=== PATIENT | male | born 1975 | race Caucasian/White ===

== ENCOUNTER 2021-05-15 13:37 | Emergency (ER) | payer OTHER, SELFPAY ==
[2021-05-15 13:50] VITALS: BP 135/75; PULSE 68; RESP 17; TEMP 36.1; O2SAT 96; BMI 28.0
--- NOTE | 2021-05-15 14:09 | ED_ITS ---
HPI - Ear Problem General Chief complaint: Ear Problems Stated complaint: Earache Time Seen by Provider: 05/15/21 14:01 Source: patient Mode of arrival: ambulatory Limitations: no limitations History of Present Illness HPI Narrative: 46-year-old male presenting to the ED with complaints of bilateral ear pain worse on the right for the past week and a half. Reports that approximately 1 month ago he was treated for a fungal infection although did not finish all the antibiotic drops. Reports that he has been putting Q-tips in his ears because he feels like something is in there he noticed some clear/purulent discharge. He reports that it hurts when he touches his ear. He denies any other symptoms complaints or concerns related to this. MD Complaint: ear pain, ear discharge and decreased hearing Location: bilateral Duration: constant Severity: moderate Relieving factors: nothing Exacerbating factors: palpation Context: other (Reports he was diagnosed approximately a month ago with a fungal infection to his ears and he had some drops although did not finish the course) Discharge from ear: yes - purulent Associated symptoms ear: decreased hearing and external ear tenderness Treatment prior to arrival: attempt at ear wax removal Related Data Previous Rx's Medication Instructions Recorded amoxicillin 875 mg-potassium 1 tab PO BID 10 Days #20 tab 05/15/21 clavulanate 125 mg tablet ciprofloxacin 0.3 %-dexamethasone 4 drp OTIC (EARS) BID 7 Days ml 05/15/21 0.1 % ear drops,suspension (Ciprodex) Allergies Allergy/AdvReac Type Severity Reaction Status Date / Time No Known Allergies Allergy Verified 05/15/21 13:53 Review of Systems Review of Systems: Constitutional : No Weight loss, No Fever, No Chills, No Night Sweats, No Fatigue, No Malaise ENT/Mouth : Positive decreased hearing with bilateral ear pain and discharge from the ear, No Hearing loss, No Nasal Congestion, No Sinus Pain, No Hoarseness, No sore throat, No Rhinorrhea, No Swallowing Difficulty Eyes: No Eye Pain, No Swelling, No Redness, No Foreign Body, No Discharge, No Vision Changes Cardiovascular : No Chest Pain, No SOB, No Dyspnea on Exertion, No Orthopnea, No Edema, No Palpitations Respiratory : No Cough, No Sputum, No Wheezing, No Smoke Exposure, No Dyspnea Gastrointestinal : No Nausea, No Vomiting, No Diarrhea, No Constipation, No abdominal Pain, No Hematochezia, No Melena Genitourinary : no irregular bleeding, No Dysuria, No Urinary Frequency, No Hematuria, No Urinary Incontinence, No Urgency, No Flank Pain, No Urinary Flow Changes, No Hesitancy Musculoskeletal : No joint pain, No Myalgias, No Joint Swelling Skin : No Skin Lesions, No rash Neuro : No Weakness, No Numbness, No Paresthesias, No Loss of Consciousness, No Dizziness, No Headache Psych : No Anxiety/Panic, No Depression, No SI/HI/AH/VH, No Social Issues, Heme/Lymph: No Bruising, No Bleeding,No Lymphadenopathy Endocrine : No Polyuria, No Polydipsia, No Temperature Intolerance Yes all other systems are reviewed and are negative [facility] Past Medical History Attestation statement: The following information was validated with the patient. Medical History HIV (human immunodeficiency virus infection) Social History Social History Advance Directives: No Advance Directives Information Provided: No Physical Exam Vital Signs: Vital Signs: Last Vital Signs Temp 97.0 F 05/15/21 13:50 Pulse 68 05/15/21 13:50 Resp 17 05/15/21 13:50 BP 135/75 05/15/21 13:50 Pulse Ox 96 05/15/21 13:50 BMI result Body Mass Index 28.0 vital signs have been reviewed as normal and appeared to be correct. Blood pressure normal. Heart rate normal. Respiration rate normal. Temperature normal. Oxygen saturation normal. Appearance: Alert. Oriented X3. No acute distress. Head: Normal external exam. Normocephalic. Atraumatic. No Vázquez signs noted. No raccoon eyes noted Eyes: PERRLA. EOMI. Conjunctiva and sclera normal. Eyelids normal. ENT: Patient with tenderness up patient on manipulation of the pinna and tragus and on bilateral external ear canal examination patient noted to have edema and purulent drainage and cerumen impaction consistent with otitis externa. Tympanic membranes mildly erythematous and bulging with loss of normal landmarks consistent with otitis media. Pharynx normal. Uvula midline. Moist mucous membranes. No trismus noted. No drooling noted. No muffled voice noted. Neck: Normal inspection. Neck supple. FROM. No adenopathy. Thyroid Normal. No meningeal signs. No neck mass noted. CVS: Normal heart rate and rhythm. Heart sound normal. Pulses normal throughout. No murmurs/rales/gallops. Respiratory: No respiratory distress. Painless inspiration. Breath sounds normal. No wheezes/rales/rhonchi noted. Chest nontender. No accessory muscle usage noted or decreased air movement noted. Back: Full range of motion noted. No rashes/lesion/induration/fluctuance or signs of infection noted. Skin: Skin warm and dry. Normal skin color. Normal skin turgor. No rash es/lesions/lacerations noted. Extremities: No calf tenderness is noted. Extremities exhibit normal range of motion. Extremities nontender. Neuro: Oriented X 3. No motor deficit. No sensory deficit. Reflexes normal. Normal steady gait. No focal neuro deficits noted. CN's II-XII intact bilaterally? Vascular: + radial pulses/+ 2 distal pedal pulses/+2 dorsalis pedis b/l. Normal cap refill. No cyanosis noted to upper extremity nails and lower extremity toes nails. Course Course Course Narrative: Patient now status post cerumen removal bilaterally. With peroxide. Patient tolerated procedure well. No complications. Tympanic membranes were intact prior and after the cerumen impaction removal. Will DC home with antibiotics and instructions follow-up with Ear Nose and Throat in to continue his antibiotics as prescribed and to return if any new or worsening symptoms. Patient understands agrees with this plan Procedures Ear Wax Removal Both Ears: Cerumenolytic Used: other (Peroxide) Results: Re-examined: some cerumen remains TM Examination: TM(s) erythematous Ear Canal Exam: atraumatic Patient Tolerated Procedure: well and no complications Complications: no problems Technique: ear canal irrigated MDM - Ear Medical Records Attestation: I reviewed the patient's medical records. Discharge Plan Discharge Clinical Impression: Otitis externa, Otitis media, Cerumen impaction Patient Disposition: Home, Self-Care Instructions: Otitis Externa (DC), Ear Infection (ED) Prescriptions: New ciprofloxacin-dexamethasone [Ciprodex] 0.3-0.1 % drops,suspension 4 drp otic (ears) BID 7 Days 0RF amoxicillin-pot clavulanate 875-125 mg tablet 1 tab PO BID 10 Days Qty: 20 0RF Referrals: Rome Vegas [Physician] - 2 days Katie Downing MD [Primary Care Provider] - 2 days Print Language: Sri Lankan
== END 2021-05-15 14:18 | disposition home or self-care (01) ==
PROVIDERS: Emergency Provider Emergency Medicine; PCP Student in an Organized Health Care Education/Training Program
DX: H60.93 Unspecified otitis externa, bilateral (principal); H66.93 Otitis media, unspecified, bilateral; H61.23 Impacted cerumen, bilateral; H92.03 Otalgia, bilateral; B20 Human immunodeficiency virus [HIV] disease
CPT/HCPCS: 69209; 99283

== ENCOUNTER 2021-05-16 16:15 | Emergency (ER) | payer OTHER, SELFPAY ==
[2021-05-16 16:17] VITALS: BP 142/74; PULSE 90; RESP 18; TEMP 36.7; O2SAT 99; BMI 29.0
--- NOTE | 2021-05-16 17:13 | ED.EAR ---
HPI - Ear Problem General Chief complaint: Ear Problems Stated complaint: continued earache, medication isnt helping Time Seen by Provider: 05/16/21 16:19 Source: patient Mode of arrival: ambulatory Limitations: no limitations History of Present Illness HPI Narrative: 46-year-old male presenting to the ED with complaints of persisting right-sided ear pain he reports that the antibiotics and the Motrin Tylenol are not helping his pain he came here for something stronger for his pain. He denies any other injuries complaints concerns at this time. He was seen here yesterday for otitis media/externa was given PO abx's and drops. He reports he is taking as prescribed. MD Complaint: ear pain and ear discharge Location: right ear Duration: constant Severity: moderate Relieving factors: nothing Exacerbating factors: nothing Discharge from ear: yes - purulent Treatment prior to arrival: other (See above) Related Data Previous Rx's Medication Instructions Recorded amoxicillin 875 mg-potassium 1 tab PO BID 10 Days #20 tab 05/15/21 clavulanate 125 mg tablet ciprofloxacin 0.3 %-dexamethasone 4 drp OTIC (EARS) BID 7 Days ml 05/15/21 0.1 % ear drops,suspension (Ciprodex) ofloxacin 0.3 % ear drops 10 drp OTIC (EARS) DAILY 7 Days 05/16/21 #10 ml tramadol 50 mg tablet 50 mg PO Q8H PRN #14 tab 05/16/21 Allergies Allergy/AdvReac Type Severity Reaction Status Date / Time No Known Allergies Allergy Verified 05/15/21 13:53 Review of Systems Review of Systems: Constitutional : No Weight loss, No Fever, No Chills, No Night Sweats, No Fatigue, No Malaise ENT/Mouth : + ear pain/discharge, No Hearing loss, No Nasal Congestion, No Sinus Pain, No Hoarseness, No sore throat, No Rhinorrhea, No Swallowing Difficulty Eyes: No Eye Pain, No Swelling, No Redness, No Foreign Body, No Discharge, No Vision Changes Cardiovascular : No Chest Pain, No SOB, No Dyspnea on Exertion, No Orthopnea, No Edema, No Palpitations Respiratory : No Cough, No Sputum, No Wheezing, No Smoke Exposure, No Dyspnea Gastrointestinal : No Nausea, No Vomiting, No Diarrhea, No Constipation, No abdominal Pain, No Hematochezia, No Melena Genitourinary : no irregular bleeding, No Dysuria, No Urinary Frequency, No Hematuria, No Urinary Incontinence, No Urgency, No Flank Pain, No Urinary Flow Changes, No Hesitancy Musculoskeletal : No joint pain, No Myalgias, No Joint Swelling Skin : No Skin Lesions, No rash Neuro : No Weakness, No Numbness, No Paresthesias, No Loss of Consciousness, No Dizziness, No Headache Psych : No Anxiety/Panic, No Depression, No SI/HI/AH/VH, No Social Issues, Heme/Lymph: No Bruising, No Bleeding,No Lymphadenopathy Endocrine : No Polyuria, No Polydipsia, No Temperature Intolerance Yes all other systems are reviewed and are negative [facility] Past Medical History Attestation statement: The following information was validated with the patient. Medical History HIV (human immunodeficiency virus infection) Social History Social History Advance Directives: No Advance Directives Information Provided: No Physical Exam Vital Signs: Vital Signs: Last Vital Signs Temp 98.0 F 05/16/21 16:17 Pulse 90 05/16/21 16:17 Resp 18 05/16/21 16:17 BP 142/74 H 05/16/21 16:17 Pulse Ox 99 05/16/21 16:17 BMI result Body Mass Index 29.0 ?vital signs have been reviewed as normal and appeared to be correct.? Blood pressure normal.? Heart rate normal.? Respiration rate normal.? Temperature normal.? Oxygen saturation normal.? Appearance: Alert. Oriented X3. No acute distress. ? Head: Normal external exam. Normocephalic. Atraumatic.? No Vázquez signs noted. No raccoon eyes noted Eyes: PERRLA. EOMI. Conjunctiva and sclera normal. Eyelids normal.? ENT:? Patient with tenderness up patient on manipulation of the pinna and tragus and on bilateral external ear canal examination patient noted to have edema and purulent drainage and cerumen impaction consistent with otitis externa.? left Tympanic membranes mildly erythematous and bulging with loss of normal landmarks consistent with otitis media. tympanic membrane was visualized yesterday although today I am on sure if the tympanic membrane might be ruptured. Pharynx normal. Uvula midline. Moist mucous membranes. ? No trismus noted.? No drooling noted.? No muffled voice noted. Neck: Normal inspection. Neck supple. FROM. No adenopathy. Thyroid Normal. No meningeal signs. No neck mass noted. CVS: Normal heart rate and rhythm. Heart sound normal. Pulses normal throughout.? No murmurs/rales/gallops. Respiratory: No respiratory distress. Painless inspiration. Breath sounds normal. No wheezes/rales/rhonchi noted. Chest nontender. ? No accessory muscle usage noted or decreased air movement noted. Back:? Full range of motion noted.? No rashes/lesion/induration/fluctuance or signs of infection noted. Skin: Skin warm and dry.? Normal skin color.? Normal skin turgor. No rashes/lesions/lacerations noted. Extremities: No calf tenderness is noted.? Extremities exhibit normal range of motion.? Extremities nontender. Neuro: Oriented X 3.? No motor deficit.? No sensory deficit.? Reflexes normal.? Normal steady gait.? No focal neuro deficits noted. CN's II-XII intact bilaterally? Vascular: + radial pulses/+ 2 distal pedal pulses/+2 dorsalis pedis b/l.? Normal cap refill.? No cyanosis noted to upper extremity nails and lower extremity toes nails. Course Course Course Narrative: Patient persisting for persistent pain to years although worse on the right. On my exam yesterday I was able to see bilateral tympanic membranes although today and unable to visualize the right tympanic membrane therefore I am questioning a possible right tympanic membrane rupture. Therefore at this time I will DC home with antibiotics and I will change the drops to ofloxacin along with instructions follow-up with PCP and Ear Nose and Throat and to return if any new or worsening symptoms. Patient understands agrees with this plan. [facility] - Ear Medical Records Attestation: I reviewed the patient's medical records. Discharge Plan Discharge Clinical Impression: Otitis externa, Otitis media, Perforated eardrum Patient Disposition: Home, Self-Care Instructions: Otitis Externa (DC), Ruptured Eardrum (ED), Ear Infection (ED) Prescriptions: New ofloxacin 0.3 % drops 10 drp otic (ears) DAILY 7 Days Qty: 10 0RF tramadol 50 mg tablet 50 mg PO Q8H PRN (Reason: pain) Qty: 14 0RF Rx Instructions: May partially fill upon patient request No Action ciprofloxacin-dexamethasone [Ciprodex] 0.3-0.1 % drops,suspension 4 drp otic (ears) BID 7 Days 0RF amoxicillin-pot clavulanate 875-125 mg tablet 1 tab PO BID 10 Days Qty: 20 0RF Referrals: [facility] [Primary Care Provider] - 2 days Rome Vegas [Physician] - 2 days Interventions: ED Discharge Assessment Last Done: 05/16/21 17:23 Discharge Date/Time: 05/16/21 17:24 Print Language: Kazakh
== END 2021-05-16 17:24 | disposition home or self-care (01) ==
PROVIDERS: Emergency Provider Internal Medicine
DX: H60.93 Unspecified otitis externa, bilateral (principal); H66.93 Otitis media, unspecified, bilateral; H72.93 Unspecified perforation of tympanic membrane, bilateral; Z79.899 Other long term (current) drug therapy
CPT/HCPCS: 99282

== ENCOUNTER 2021-07-09 13:50 | Emergency (ER) | payer OTHER, SELFPAY ==
[2021-07-09 14:43] VITALS: BP 109/94; PULSE 88; RESP 16; TEMP 36.6; O2SAT 98; BMI 29.5
--- NOTE | 2021-07-09 16:02 | ED.NECK ---
HPI - Neck Pain/Injury General Chief Complaint: Neck Pain/Injury Stated Complaint: stifness , neck pain and back Time Seen by Provider: 07/09/21 15:51 Source: patient Mode of arrival: ambulatory History of Present Illness HPI Narrative: 46-year-old male with a past medical history of HIV presenting to the ED complaining of acute on chronic right-sided neck pain/stiffness radiating down RUE x years. Admits symptoms began after injury many years ago, now with intermittent flares. Denies new/recent fall/injury or trauma. Reports intermittent numbness to RUE. Denies weakness, fever, back pain, urinary incontinence/retention, sore throat/swelling, ear pain MD complaint: neck pain Onset (ago): year(s) Related Data Previous Rx's Medication Instructions Recorded amoxicillin 875 mg-potassium 1 tab PO BID 10 Days #20 tab 05/15/21 clavulanate 125 mg tablet ciprofloxacin 0.3 %-dexamethasone 4 drp OTIC (EARS) BID 7 Days ml 05/15/21 0.1 % ear drops,suspension (Ciprodex) ofloxacin 0.3 % ear drops 10 drp OTIC (EARS) DAILY 7 Days 05/16/21 #10 ml tramadol 50 mg tablet 50 mg PO Q8H PRN #14 tab 05/16/21 acetaminophen 500 mg tablet 500 mg PO Q6H PRN #14 tab 07/09/21 (Tylenol Extra Strength) cyclobenzaprine 5 mg tablet 5 mg PO Q8H PRN 5 Days #14 tab 07/09/21 lidocaine 5 % topical patch 1 patch TOPICAL DAILY PRN #30 ea 07/09/21 (Lidoderm) MDD remove after 12 hours Allergies Allergy/AdvReac Type Severity Reaction Status Date / Time No Known Allergies Allergy Verified 05/15/21 13:53 Review of Systems Review of Systems: Constitutional: No Fever, No Chills, No Fatigue, No Malaise ENT/Mouth: No Hearing loss, No Ear Pain, No Nasal Congestion, No sore throat, No Rhinorrhea, No Swallowing Difficulty Eyes: No Eye Pain, No Swelling, No Redness Cardiovascular: No Chest Pain, No SOB, No Edema, No Palpitations Respiratory: No Cough, No Sputum, No Dyspnea Gastrointestinal: No Nausea, No Vomiting, No Diarrhea, No Constipation, No Abdominal pain Genitourinary: No irregular bleeding, No Dysuria, No Urinary Frequency, No Hematuria, No Urinary Incontinence/retention Musculoskeletal: + joint pain, No Myalgias, No Joint Swelling Skin: No Skin Lesions, No rash Neuro: No Weakness, + Numbness, + Paresthesias, No Loss of Consciousness, No Dizziness, No Headache Yes all other systems are reviewed and are negative [facility] Past Medical History Attestation statement: The following information was validated with the patient. Medical History HIV (human immunodeficiency virus infection) Social History Social History Advance Directives: No Advance Directives Information Provided: No Physical Exam Vital Signs: Vital Signs: Last Vital Signs Temp 97.9 F 07/09/21 14:43 Pulse 88 07/09/21 14:43 Resp 16 07/09/21 14:43 BP 109/94 H 07/09/21 14:43 Pulse Ox 98 07/09/21 14:43 BMI result Body Mass Index 29.5 Const: General: cooperative, healthy appearing and no acute distress Orientation/consciousness: patient oriented x3 Limitations: no limitations HEENT: Head: Yes normal to inspection Ears: hearing grossly normal bilaterally General nose exam: Normal external nose present Face and sinus: Yes normal facial exam Eyes: General: appearance normal, both eyes and all related structures EOM: EOMs intact bilaterally Neck: Neck: Yes normal visual inspection Resp: Effort & Inspection: normal respiratory effort Auscultation: clear to auscultation bilaterally Cardio: Rate: regular rate Heart sounds: S1 normal heart sound present and S2 normal heart sound present GI: Inspection: Yes normal to inspection Palpation (GI): Soft to palpation, nontender, no guarding and not rigid : General: Yes no CVA tenderness Back/Spine/Pelvis: Back: no CVA tenderness Skin: Rashes: no rashes Wounds: no wounds Neuro: General: patient oriented x3 Gait exam (Neuro): Normal gait present Extrem: General: Yes normal to inspection Discharge Plan Discharge Clinical Impression: Cervical radiculopathy, Strain of neck muscle Patient Disposition: Home, Self-Care Instructions: Cervical Radiculopathy (ED) Additional Instructions: Your pain is likely musculoskeletal/you may have a pinched nerve Flexeril is a muscle relaxer, take at night as it makes you drowsy, do not drive, drink alcohol, or operate machinery while taking it Lidoderm patches are numbing patches, apply to painful area In addition take Tylenol at home If symptoms persist or worsen, pain becomes unbearable, you developed urinary retention or incontinence, or weakness return to the ED [facility]? Sports medicine clinic- [place], [place] ? Prescriptions: New acetaminophen [Tylenol Extra Strength] 500 mg tablet 500 mg PO Q6H PRN (Reason: pain or fever) Qty: 14 0RF lidocaine [Lidoderm] 5 % adhesive patch,medicated 1 patch topical DAILY MDD remove after 12 hours PRN (Reason: pain) Qty: 30 0RF Rx Instructions: leave on most painful area for up to 12 hrs cyclobenzaprine 5 mg tablet 5 mg PO Q8H PRN (Reason: pain (scale score 7-10)) 5 Days Qty: 14 0RF No Action ciprofloxacin-dexamethasone [Ciprodex] 0.3-0.1 % drops,suspension 4 drp otic (ears) BID 7 Days 0RF amoxicillin-pot clavulanate 875-125 mg tablet 1 tab PO BID 10 Days Qty: 20 0RF ofloxacin 0.3 % drops 10 drp otic (ears) DAILY 7 Days Qty: 10 0RF tramadol 50 mg tablet 50 mg PO Q8H PRN (Reason: pain) Qty: 14 0RF Rx Instructions: May partially fill upon patient request Referrals: Sara Malagon MD [Physician] - 1 week Physician,Unknown J [Primary Care Provider] -
[2021-07-09] MEDS: Lidocaine 4 % Patch ADH..PATCH 1 PATCH TRANSDERMA (16:25)
== END 2021-07-09 16:33 | disposition home or self-care (01) ==
PROVIDERS: Emergency Provider Emergency Medicine
DX: M54.12 Radiculopathy, cervical region (principal); M54.2 Cervicalgia; Z79.899 Other long term (current) drug therapy
CPT/HCPCS: 99283

== ENCOUNTER 2021-07-17 01:39 | Emergency (ER) | payer OTHER, SELFPAY ==
[2021-07-17 01:43] VITALS: BP 140/90; PULSE 92; O2SAT 98
[2021-07-17 01:45] VITALS: BP 137/80; PULSE 83; RESP 18; TEMP 36.9; O2SAT 95; BMI 29.5
[2021-07-17 02:21] VITALS: BP 126/85; PULSE 76; RESP 16; O2SAT 98
--- NOTE | 2021-07-17 02:36 | ED_ITS ---
HPI - General Adult General Chief complaint: General Medical Stated complaint: RIGHT ARM PAIN Time Seen by Provider: 07/17/21 02:30 Source: patient Mode of arrival: ambulatory Limitations: no limitations History of Present Illness HPI narrative: Patient comes to the emergency room complaining of right-sided numbness and tingling in the upper extremity, radiating from the neck. Patient states that at the age of 26, patient had an accident and since then he has had radiculopathy. Patient has an appointment coming up in a few days with a specialist , but does not know which specialty, likely orthopedics or spine surgery. Patient states that he is taking gabapentin but it is not working. Patient has been very uncomfortable tonight due to the pain. Patient denies neck stiffness, no fever or chills. Related Data Previous Rx's Medication Instructions Recorded amoxicillin 875 mg-potassium 1 tab PO BID 10 Days #20 tab 05/15/21 clavulanate 125 mg tablet ciprofloxacin 0.3 %-dexamethasone 4 drp OTIC (EARS) BID 7 Days ml 05/15/21 0.1 % ear drops,suspension (Ciprodex) ofloxacin 0.3 % ear drops 10 drp OTIC (EARS) DAILY 7 Days 05/16/21 #10 ml tramadol 50 mg tablet 50 mg PO Q8H PRN #14 tab 05/16/21 acetaminophen 500 mg tablet 500 mg PO Q6H PRN #14 tab 07/09/21 (Tylenol Extra Strength) cyclobenzaprine 5 mg tablet 5 mg PO Q8H PRN 5 Days #14 tab 07/09/21 lidocaine 5 % topical patch 1 patch TOPICAL DAILY PRN #30 ea 07/09/21 (Lidoderm) MDD remove after 12 hours tramadol 50 mg tablet 50 mg PO BID PRN #7 tab 07/17/21 Allergies Allergy/AdvReac Type Severity Reaction Status Date / Time No Known Allergies Allergy Verified 05/15/21 13:53 Review of Systems Review of Systems: Constitutional : No Weight loss, No Fever, No Chills, No Night Sweats, No Fatigue, No Malaise ENT/Mouth : No Hearing loss, No Ear Pain, No Nasal Congestion, No Sinus Pain, No Hoarseness, No sore throat, No Rhinorrhea, No Swallowing Difficulty Eyes: No Eye Pain, No Swelling, No Redness, No Foreign Body, No Discharge, No Vision Changes Cardiovascular : No Chest Pain, No SOB, No Dyspnea on Exertion, No Orthopnea, No Edema, No Palpitations Respiratory : No Cough, No Sputum, No Wheezing, No Smoke Exposure, No Dyspnea Gastrointestinal : No Nausea, No Vomiting, No Diarrhea, No Constipation, No abdominal Pain, No Hematochezia, No Melena Genitourinary : no irregular bleeding, No Dysuria, No Urinary Frequency, No H ematuria, No Urinary Incontinence, No Urgency, No Flank Pain, No Urinary Flow Changes, No Hesitancy Musculoskeletal : Complaining of chronic neck pain radiating from the neck to the tips of the fingers and the right hand. Chronic. Skin : No Skin Lesions, No rash Neuro : No Weakness, No Numbness, No Paresthesias, No Loss of Consciousness, No Dizziness, No Headache Psych : No Anxiety/Panic, No Depression, No SI/HI/AH/VH, No Social Issues, Heme/Lymph: No Bruising, No Bleeding,No Lymphadenopathy Endocrine : No Polyuria, No Polydipsia, No Temperature Intolerance [facility] Past Medical History Medical History (Updated 07/17/21 @ 02:39 by Nae Escalante MD) Cervical radiculopathy HIV (human immunodeficiency virus infection) Social History Social History Advance Directives: No Physical Exam ED Vital Signs: Vital Signs - 24 hr 07/17/21 01:45 07/17/21 02:21 Temperature 98.5 F Pulse Rate 83 76 Respiratory Rate 18 16 Blood Pressure 137/80 126/85 Pulse Oximetry 95 98 BMI result Body Mass Index 29.5 Const Other: Appearance: Alert. Oriented X3. No acute distress. Eyes: Pupils equal, round and reactive to light. ENT: Pharynx normal. Neck: Normal inspection. Neck supple. No lymph nodes noted. No crepitus patient is able to flex and extend the neck, no pain to palpation CVS: Normal heart rate and rhythm. Pulses normal. Normal S1 and S2 Respiratory: No respiratory distress. Breath sounds normal. No Wheezing. No rales Abdomen: Soft and nontender. No rigidity. No distention. Skin: Skin warm and dry. Normal skin color. Normal skin turgor. Extremities: No lower extremity edema. No Lacerations. No Rash. Patient is able to abduct and adduct both arms Neuro: Oriented X 3. No motor deficit. No sensory deficit. Moving all extremities. No slurred speech. CN 2 through 12 grossly intact Psych: calm, cooperative, normal affect Course Course Course Narrative: Patient has had issues with cervical radiculopathy for over 20 years. Patient will be seeing a specialist soon. Patient was given 1 dose of dexamethasone and p.o. tramadol. Patient cannot receive any NSAIDs due to chronic kidney injury, patient has an appointment pending with Nephrology. Discharge Plan Discharge Clinical Impression: Cervical radiculopathy Patient Disposition: Home, Self-Care Instructions: Cervical Radiculopathy (ED) Additional Instructions: Please follow-up with your primary care physician tomorrow. If you have any worsening or new symptoms, please return to the emergency room or call 911 Prescriptions: New tramadol 50 mg tablet 50 mg PO BID PRN (Reason: pain) Qty: 7 0RF No Action ciprofloxacin-dexamethasone [Ciprodex] 0.3-0.1 % drops,suspension 4 drp otic (ears) BID 7 Days 0RF amoxicillin-pot clavulanate 875-125 mg tablet 1 tab PO BID 10 Days Qty: 20 0RF ofloxacin 0.3 % drops 10 drp otic (ears) DAILY 7 Days Qty: 10 0RF tramadol 50 mg tablet 50 mg PO Q8H PRN (Reason: pain) Qty: 14 0RF Rx Instructions: May partially fill upon patient request acetaminophen [Tylenol Extra Strength] 500 mg tablet 500 mg PO Q6H PRN (Reason: pain or fever) Qty: 14 0RF lidocaine [Lidoderm] 5 % adhesive patch,medicated 1 patch topical DAILY MDD remove after 12 hours PRN (Reason: pain) Qty: 30 0RF Rx Instructions: leave on most painful area for up to 12 hrs cyclobenzaprine 5 mg tablet 5 mg PO Q8H PRN (Reason: pain (scale score 7-10)) 5 Days Qty: 14 0RF
[2021-07-17] MEDS: traMADoL HCL 50 MG TABLET PO (02:57)
[2021-07-17] MEDS: dexAMETHasone sod phosphate 4 MG/ML VIAL 6 MG IM (02:57)
== END 2021-07-17 03:03 | disposition home or self-care (01) ==
PROVIDERS: Emergency Provider Emergency Medicine
DX: M54.12 Radiculopathy, cervical region (principal); M79.602 Pain in left arm; M54.2 Cervicalgia; Z79.899 Other long term (current) drug therapy
CPT/HCPCS: 96372; 99283; 99284; J1100

== ENCOUNTER 2021-07-22 20:58 | Emergency (ER) | payer OTHER, SELFPAY ==
--- NOTE | ~2021-07-22 | CT_ITS ---
EXAMINATION: CT ABDOMEN AND PELVIS WITHOUT CONTRAST CLINICAL INFORMATION: Leukocytosis and vomiting. COMPARISON: Renal ultrasound 09/10/2019. TECHNIQUE: Multidetector volumetric imaging was performed from the superior aspect of the liver through the pubic symphysis. Sagittal and coronal reformatted images were obtained on the technologist's workstation. This CT examination was performed using dose optimization techniques as appropriate, variously including the following: *Automated exposure control *Adjustment of mA and/or kV according to patient size (this includes techniques or standardized protocols for targeted exams where dose is matched to indication/reason for exam; i.e. extremities or head) *Use of iterative reconstruction technique DLP: 584 mGy-cm FINDINGS: LUNG BASES: Minimal bibasilar subpleural reticular opacities are present and may represent minimal parenchymal scarring and/or inferior dependent atelectasis. LIVER, GALLBLADDER, AND BILIARY TREE: The liver is normal in size, shape, and attenuation. No focal hepatic lesion or biliary ductal dilatation is present. The gallbladder is unremarkable with no evidence of radiopaque gallstones, gallbladder wall thickening, or obvious pericholecystic inflammatory changes. PANCREAS: Unremarkable. SPLEEN: Unremarkable. ADRENAL GLANDS: Unremarkable. KIDNEYS AND URETERS: No hydronephrosis or perinephric inflammatory changes. No nephrolithiasis. Normal appearance of the ureters. BLADDER: Decompressed. GASTROINTESTINAL TRACT: Normal appendix. No intestinal dilatation or mural thickening. Normal terminal ileum. No free intraperitoneal fluid or gas collections. Normal appearance of the sigmoid mesentery and small bowel mesentery. Normal appearance of the stomach. ABDOMINAL WALL: No significant hernia is appreciated. LYMPH NODES: Normal. VASCULAR: Minimal punctate calcific atherosclerotic plaque within the right common iliac artery. PELVIC VISCERA: Normal appearance of the prostate and seminal vesicles. OSSEOUS STRUCTURES: No suspicious skeletal abnormalities identified. CT/CT abdomen pelvis wo con IMPRESSION: Unenhanced CT of the abdomen and pelvis: *No acute abnormalities identified. Normal appendix. No urolithiasis. No hydronephrosis. No diverticulosis. No free intraperitoneal fluid or gas collections.
[2021-07-22 21:11] VITALS: BP 128/82; PULSE 80; O2SAT 99
[2021-07-22 22:09] VITALS: BP 113/47; PULSE 76; RESP 16; TEMP 36.5; O2SAT 97; BMI 29.5
[2021-07-22] MEDS: Ondansetron ODT 4 MG TAB.RAPDIS TRANSLINGU (22:17)
[2021-07-22 22:36] LABS: MANUAL DIFF FLAG NO
[2021-07-22 22:45] LABS: Basophils Percent Auto 0.2 % (0-2); Eosinophils Absolute Auto 0.3 X10*3/uL (0.0-0.4); Eosinophils Percent Auto 1.8 % (0-4); Hematocrit 47.4 % (42.0-52.0); Hemoglobin 15.7 g/dl (14.0-18.0); Imm Gran Abs Auto 0.09 X10*3/uL (0.00-0.03); Imm Gran Pct Auto 0.5 % (0.0-0.4); Mean Corpuscular HGB Conc 33.1 g/dl (31.0-36.0); Mean Corpuscular Hemoglobin 28.5 pg (27.0-33.0); Mean Platelet Volume 9.7 fL (9.4-12.4); Monocytes Absolute Auto 0.9 X10*3/uL (0.1-1.2); Neutrophils Absolute Auto 12.6 x10*3/uL (2.0-8.3); Neutrophils Percent Auto 74.5 % (45-73); Platelet Count 214 X10*3/uL (160-400); Red Blood Count 5.51 X10*6/uL (4.60-5.80); Red Cell Distribution Width 14.1 % (11.0-16.0); White Blood Count 16.9 X10*3/uL (4.8-10.8)
[2021-07-22 22:54] LABS: Alanine Aminotransferase 59 U/L (0-40); Albumin Level 4.4 g/dL (3.5-5.0); Alkaline Phosphatase 90 U/L (39-117); Anion Gap 12 (12-20); Aspartate Amino Transferase 26 U/L (5-37); Bilirubin Direct < 0.2 mg/dL (0.0-0.5); Bilirubin Total 0.2 mg/dL (0.0-1.0); Blood Urea Nitrogen 30 mg/dL (9-16); Calcium 9.4 mg/dL (8.4-10.2); Carbon Dioxide 32 mmol/L (22-29); Chloride 98 mmol/L (96-108); Creatinine Clr Calc Pharmacy 66.5; Estimated Glomerular Filt Rate 48; Glucose Random 148 mg/dL (60-115); Lipase 36 U/L (8-78); Potassium 4.4 mmol/L (3.3-5.1); Sodium 138 mmol/L (135-145); Total Protein 7.9 g/dL (6.5-8.0)
[2021-07-22 23:07] LABS: COVID-19 Test Negative (Negative); IDNOW Serial# 16C4AD1C; Influenza A Negative (Negative); Influenza B2 Negative (Negative)
[2021-07-22 23:45] VITALS: BP 123/80; PULSE 70; RESP 16; TEMP 36.9; O2SAT 96
[2021-07-23 00:18] LABS: Appearance Urine CLEAR; Color Urine YELLOW; Glucose Urine UA NEG (NEG); Leukocyte Esterase Urine NEG (NEG); Nitrite Urine NEG (NEG); Urine Blood NEG (NEG); Urine Ketones NEG (NEG); Urine Protein NEG (NEG-TRACE)
--- NOTE | 2021-07-23 00:29 | ED.NAVMDI ---
HPI - Nausea/Vomiting/Diarrhea General Chief complaint: Abdominal Pain Stated complaint: nausea vomiting Time Seen by Provider: 07/23/21 00:28 Source: patient Mode of arrival: EMS Limitations: no limitations History of Present Illness HPI Narrative: Preop history of HIV undetectable CD4 count, CKD been having nausea vomiting for last few hours vomited about 5 times has some just abdominal discomfort but no focal pain no diarrhea no fever no chills no fever no chills no running nose no cough or shortness of breath Related Data Previous Rx's Medication Instructions Recorded amoxicillin 875 mg-potassium 1 tab PO BID 10 Days #20 tab 05/15/21 clavulanate 125 mg tablet ciprofloxacin 0.3 %-dexamethasone 4 drp OTIC (EARS) BID 7 Days ml 05/15/21 0.1 % ear drops,suspension (Ciprodex) ofloxacin 0.3 % ear drops 10 drp OTIC (EARS) DAILY 7 Days 05/16/21 #10 ml tramadol 50 mg tablet 50 mg PO Q8H PRN #14 tab 05/16/21 acetaminophen 500 mg tablet 500 mg PO Q6H PRN #14 tab 07/09/21 (Tylenol Extra Strength) cyclobenzaprine 5 mg tablet 5 mg PO Q8H PRN 5 Days #14 tab 07/09/21 lidocaine 5 % topical patch 1 patch TOPICAL DAILY PRN #30 ea 07/09/21 (Lidoderm) MDD remove after 12 hours tramadol 50 mg tablet 50 mg PO BID PRN #7 tab 07/17/21 ondansetron 4 mg disintegrating 4 mg PO Q6-8H PRN #7 tab 07/23/21 tablet Allergies Allergy/AdvReac Type Severity Reaction Status Date / Time No Known Allergies Allergy Verified 05/15/21 13:53 Review of Systems Review of Systems: Yes all other systems are reviewed and are negative PMFSH Past Medical History Medical History Cervical radiculopathy HIV (human immunodeficiency virus infection) Social History Social History Advance Directives: No Advance Directives Information Provided: Yes Physical Exam Vital Signs: Vital Signs: Last Vital Signs Temp 98.4 F 07/22/21 23:45 Pulse 70 07/22/21 23:45 Resp 16 07/22/21 23:45 BP 123/80 07/22/21 23:45 Pulse Ox 96 07/22/21 23:45 BMI result Body Mass Index 29.5 Appearance: Alert. Oriented X3. No acute distress. Eyes: No pallor or icterus ENT: Pharynx normal. Oral Mucosa moist Neck: Normal inspection. Neck supple. CVS: Normal heart rate and rhythm. Pulses normal. Respiratory: No respiratory distress. Equal air entry bilateral, no wheezing/rales/rhonchi Abdomen: Soft and nontender. Bowel sounds are present, no mass palpable, no CVA tenderness Skin: Skin warm and dry. Normal skin color. Normal skin turgor. Extremities: No lower extremity edema. No calf tenderness Neuro: Oriented X 3. MDM - Nausea/Vomiting/Diarrhea MDM Narrative Medical decision making narrative: Patient labs reviewed showed significant leukocytosis with left shift also has elevated creatinine from baseline no urine ketones patient has no focal tenderness in the abdomen but because of HIV and elevated leukocytosis will do CT scan of the abdomen to rule out any occult pathology CT scan of the abdomen negative for any acute pathology will discharge patient home Lab Data Attestation: I reviewed the patient's lab results. Result diagrams: 07/22/21 22:30 07/22/21 22:30 Labs: Lab Results 07/22/21 07/22/21 07/22/21 Range/Units 22:30 22:30 22:30 WBC 16.9 H (4.8-10.8) X10*3/uL RBC 5.51 (4.60-5.80) X10*6/uL Hgb 15.7 (14.0-18.0) g/dl Hct 47.4 (42.0-52.0) % MCV 86.0 (80.0-98.0) fL MCH 28.5 (27.0-33.0) pg MCHC 33.1 (31.0-36.0) g/dl RDW 14.1 (11.0-16.0) % Plt Count 214 (160-400) X10*3/uL MPV 9.7 (9.4-12.4) fL Immature Gran % (Auto) 0.5 H (0.0-0.4) % Neut % (Auto) 74.5 H (45-73) % Lymph % (Auto) 18.0 L (20-40) % [place] % (Auto) 5.0 (2-11) % Eos % (Auto) 1.8 (0-4) % Baso % (Auto) 0.2 (0-2) % Lymph # (Auto) 3.0 (1.2-4.9) X10*3/uL [place] # (Auto) 0.9 (0.1-1.2) X10*3/uL Eos # (Auto) 0.3 (0.0-0.4) X10*3/uL Baso # (Auto) 0.0 (0.0-0.2) X10*3/uL Abs Immat Gran (auto) 0.09 H (0.00-0.03) X10*3/uL Absolute Neuts (auto) 12.6 H (2.0-8.3) x10*3/uL Absolute Nucleated RBC 0.000 (0.0-0.012) X10*3/uL Nucleated RBC % (auto) 0.0 (0.0-0.2) /100WBC Sodium 138 (135-145) mmol/L Potassium 4.4 (3.3-5.1) mmol/L Chloride 98 (96-108) mmol/L Carbon Dioxide 32 H (22-29) mmol/L Anion Gap 12 (12-20) BUN 30 H (9-16) mg/dL Creatinine 1.56 H (0.5-1.4) mg/dL Estim Creat Clear Calc 66.5 Estimated GFR 48 Random Glucose 148 H (60-115) mg/dL Calcium 9.4 (8.4-10.2) mg/dL Total Bilirubin 0.2 (0.0-1.0) mg/dL Direct Bilirubin < 0.2 (0.0-0.5) mg/dL AST 26 (5-37) U/L ALT 59 H (0-40) U/L Alkaline Phosphatase 90 (39-117) U/L Total Protein 7.9 (6.5-8.0) g/dL Albumin 4.4 (3.5-5.0) g/dL Lipase 36 (8-78) U/L Urine Color Urine Appearance Urine pH (5.0-8.0) Ur Specific [place] (1.005-1.025) Urine Protein (NEG-TRACE) MG/DL Urine Glucose (UA) (NEG) MG/DL Urine Ketones (NEG) MG/DL Urine Blood (NEG) Urine Nitrite (NEG) Ur Leukocyte Esterase (NEG) COVID-19 ([facility]) (Negative) COVID-19 Clin Com Influenza Type A (RETA) Negative (Negative) Influenza Type B (RETA) Negative (Negative) Influenza A & B Note See Note 07/22/21 07/23/21 Range/Units 22:30 00:13 WBC (4.8-10.8) X10*3/uL RBC (4.60-5.80) X10*6/uL Hgb (14.0-18.0) g/dl Hct (42.0-52.0) % MCV (80.0-98.0) fL MCH (27.0-33.0) pg MCHC (31.0-36.0) g/dl RDW (11.0-16.0) % Plt Count (160-400) X10*3/uL MPV (9.4-12.4) fL Immature Gran % (Auto) (0.0-0.4) % Neut % (Auto) (45-73) % Lymph % (Auto) (20-40) % [place] % (Auto) (2-11) % Eos % (Auto) (0-4) % Baso % (Auto) (0-2) % Lymph # (Auto) (1.2-4.9) X10*3/uL [place] # (Auto) (0.1-1.2) X10*3/uL Eos # (Auto) (0.0-0.4) X10*3/uL Baso # (Auto) (0.0-0.2) X10*3/uL Abs Immat Gran (auto) (0.00-0.03) X10*3/uL Absolute Neuts (auto) (2.0-8.3) x10*3/uL Absolute Nucleated RBC (0.0-0.012) X10*3/uL Nucleated RBC % (auto) (0.0-0.2) /100WBC Sodium (135-145) mmol/L Potassium (3.3-5.1) mmol/L Chloride (96-108) mmol/L Carbon Dioxide (22-29) mmol/L Anion Gap (12-20) BUN (9-16) mg/dL Creatinine (0.5-1.4) mg/dL Estim Creat Clear Calc Estimated GFR Random Glucose (60-115) mg/dL Calcium (8.4-10.2) mg/dL Total Bilirubin (0.0-1.0) mg/dL Direct Bilirubin (0.0-0.5) mg/dL AST (5-37) U/L ALT (0-40) U/L Alkaline Phosphatase (39-117) U/L Total Protein (6.5-8.0) g/dL Albumin (3.5-5.0) g/dL Lipase (8-78) U/L Urine Color YELLOW Urine Appearance CLEAR Urine pH 7.0 (5.0-8.0) Ur Specific [place] 1.020 (1.005-1.025) Urine Protein NEG (NEG-TRACE) MG/DL Urine Glucose (UA) NEG (NEG) MG/DL Urine Ketones NEG (NEG) MG/DL Urine Blood NEG (NEG) Urine Nitrite NEG (NEG) Ur Leukocyte Esterase NEG (NEG) COVID-19 ([facility]) Negative (Negative) COVID-19 Clin Com See Note Influenza Type A (RETA) (Negative) Influenza Type B (RETA) (Negative) Influenza A & B Note Discharge Plan Discharge Clinical Impression: Acute nausea with nonbilious vomiting Patient Disposition: Home, Self-Care Instructions: Acute Nausea and Vomiting (ED) Additional Instructions: Drink plenty of fluids Medicine for the nausea/vomiting as prescribed Report to the ER/procedure is not better Prescriptions: New ondansetron 4 mg tablet,disintegrating 4 mg PO Q6-8H PRN (Reason: nausea and vomiting) Qty: 7 0RF No Action ciprofloxacin-dexamethasone [Ciprodex] 0.3-0.1 % drops,suspension 4 drp otic (ears) BID 7 Days 0RF amoxicillin-pot clavulanate 875-125 mg tablet 1 tab PO BID 10 Days Qty: 20 0RF ofloxacin 0.3 % drops 10 drp otic (ears) DAILY 7 Days Qty: 10 0RF tramadol 50 mg tablet 50 mg PO Q8H PRN (Reason: pain) Qty: 14 0RF Rx Instructions: May partially fill upon patient request acetaminophen [Tylenol Extra Strength] 500 mg tablet 500 mg PO Q6H PRN (Reason: pain or fever) Qty: 14 0RF lidocaine [Lidoderm] 5 % adhesive patch,medicated 1 patch topical DAILY MDD remove after 12 hours PRN (Reason: pain) Qty: 30 0RF Rx Instructions: leave on most painful area for up to 12 hrs cyclobenzaprine 5 mg tablet 5 mg PO Q8H PRN (Reason: pain (scale score 7-10)) 5 Days Qty: 14 0RF tramadol 50 mg tablet 50 mg PO BID PRN (Reason: pain) Qty: 7 0RF
[2021-07-23] MEDS: 0.9 % Sodium Chloride 1,000 ML 999 ML IV (02:10)
[2021-07-23 02:11] VITALS: BP 110/67; PULSE 78; RESP 16; O2SAT 97
--- NOTE | 2021-07-23 02:42 | PC.NURSE ---
Pt came in with complaint of right sided neck and shoulder pain, present for several months. Pt denies abdominal pain.
== END 2021-07-23 02:43 | disposition home or self-care (01) ==
PROVIDERS: Emergency Provider Internal Medicine
DX: R11.2 Nausea with vomiting, unspecified (principal); N18.9 Chronic kidney disease, unspecified; Z21 Asymptomatic human immunodeficiency virus [HIV] infection status; Z20.822 Contact with and (suspected) exposure to COVID-19
CPT/HCPCS: 36415; 74176; 80048; 80076; 81003; 83690; 85025; 87502; 87635; 96360; 99284

== ENCOUNTER 2022-02-02 18:12 | Emergency (ER) | payer OTHER, SELFPAY ==
[2022-02-02 19:19] VITALS: BP 116/77; PULSE 86; RESP 18; TEMP 36.1; O2SAT 96; BMI 29.9
--- NOTE | 2022-02-02 19:21 | ED.GENADULT ---
HPI - General Adult General Chief complaint: Ear Problems Stated complaint: earache for the past couple days Time Seen by Provider: 02/02/22 19:21 Source: patient Mode of arrival: ambulatory Limitations: no limitations History of Present Illness HPI narrative: pt comes to the ed c/o L ear pain for 5 days,pt was prescribed ear drops but never used them due to a malfunction of the tubing. pt denies fever and chills Related Data Previous Rx's Medication Instructions Recorded amoxicillin 875 mg-potassium 1 tab PO BID 10 days #20 tabs 05/15/21 clavulanate 125 mg tablet ciprofloxacin 0.3 %-dexamethasone 4 drp otic (ears) BID 7 days 05/15/21 0.1 % ear drops,suspension (Ciprodex) ofloxacin 0.3 % ear drops 10 drp otic (ears) DAILY 7 days 05/16/21 #10 mL tramadol 50 mg tablet 50 mg PO Q8H PRN pain #14 tabs 05/16/21 acetaminophen 500 mg tablet 500 mg PO Q6H PRN pain or fever 07/09/21 (Tylenol Extra Strength) #14 tabs cyclobenzaprine 5 mg tablet 5 mg PO Q8H PRN pain (scale score 07/09/21 7-10) 5 days #14 tabs lidocaine 5 % topical patch 1 patch topical DAILY PRN pain #30 07/09/21 (Lidoderm) ea tramadol 50 mg tablet 50 mg PO BID PRN pain #7 tabs 07/17/21 ondansetron 4 mg disintegrating 4 mg PO Q6-8H PRN nausea and 07/23/21 tablet vomiting #7 tabs acetaminophen 500 mg capsule 500 mg PO Q6H PRN fever or pain 02/02/22 #20 caps acetic acid 2 % ear solution 4 drp otic (ears) TID #15 mL 02/02/22 amoxicillin 500 mg-potassium 1 tab PO BID #19 tabs 02/02/22 clavulanate 125 mg tablet (Augmentin) Allergies Allergy/AdvReac Type Severity Reaction Status Date / Time No Known Allergies Allergy Verified 05/15/21 13:53 Review of Systems Review of Systems: Constitutional : No Weight loss, No Fever, No Chills, No Night Sweats, No Fatigue, No Malaise ENT/Mouth : No Hearing loss, c/o L Ear Pain, no discharge, No Nasal Congestion, No Sinus Pain, No Hoarseness, No sore throat, No Rhinorrhea, No Swallowing Difficulty Eyes: No Eye Pain, No Swelling, No Redness, No Foreign Body, No Discharge, No Vision Changes Cardiovascular : No Chest Pain, No SOB, No Dyspnea on Exertion, No Orthopnea, No Edema, No Palpitations Respiratory : No Cough, No Sputum, No Wheezing, No Smoke Exposure, No Dyspnea Gastrointestinal : No Nausea, No Vomiting, No Diarrhea, No Constipation, No abdominal Pain, No Hematochezia, No Melena Genitourinary : no irregular bleeding, No Dysuria, No Urinary Frequency, No Hematuria, No Urinary Incontinence, No Urgency, No Flank Pain, No Urinary Flow Changes, No Hesitancy Musculoskeletal : No joint pain, No Myalgias, No Joint Swelling Skin : No Skin Lesions, No rash Neuro : No Weakness, No Numbness, No Paresthesias, No Loss of Consciousness, No Dizziness, No Headache Psych : No Anxiety/Panic, No Depression, No SI/HI/AH/VH, No Social Issues, Heme/Lymph: No Bruising, No Bleeding,No Lymphadenopathy Endocrine : No Polyuria, No Polydipsia, No Temperature Intolerance PMFSH Past Medical History Medical History Cervical radiculopathy HIV (human immunodeficiency virus infection) Physical Exam ED Const Other: Appearance: Alert. Oriented X3. No acute distress. Eyes: Pupils equal, round and reactive to light. ENT: Pharynx normal. bilateral ears with discharge, mild erythema on the left, no mastoid bone tenderness Neck: Normal inspection. Neck supple. No lymph nodes noted. No crepitus CVS: Normal heart rate and rhythm. Pulses normal. Normal S1 and S2 Respiratory: No respiratory distress. Breath sounds normal. No Wheezing. No rales Abdomen: Soft and nontender. No rigidity. No distention. Skin: Skin warm and dry. Normal skin color. Normal skin turgor. Extremities: No lower extremity edema. No Lacerations. No Rash Neuro: Oriented X 3. No motor deficit. No sensory deficit. Moving all extremities. No slurred speech. CN 2 through 12 grossly intact Psych: calm, cooperative, normal affect Course Course Course Narrative: pt given augmentin in the ed Discharge Plan Discharge Clinical Impression: Otitis media Patient Disposition: Home, Self-Care Instructions: Ear Infection (ED) Additional Instructions: Please follow-up with your primary care physician tomorrow. If you have any worsening or new symptoms, please return to the emergency room or call 911 Prescriptions: New amoxicillin-pot clavulanate [Augmentin] 500-125 mg tablet 1 tab PO BID Qty: 19 0RF acetic acid 2 % solution 4 drp otic (ears) TID Qty: 15 0RF acetaminophen 500 mg capsule 500 mg PO Q6H PRN (Reason: fever or pain) Qty: 20 0RF No Action ondansetron 4 mg tablet,disintegrating 4 mg PO Q6-8H PRN (Reason: nausea and vomiting) Qty: 7 0RF ciprofloxacin-dexamethasone [Ciprodex] 0.3-0.1 % drops,suspension 4 drp otic (ears) BID 7 Days 0RF amoxicillin-pot clavulanate 875-125 mg tablet 1 tab PO BID 10 Days Qty: 20 0RF ofloxacin 0.3 % drops 10 drp otic (ears) DAILY 7 Days Qty: 10 0RF tramadol 50 mg tablet 50 mg PO Q8H PRN (Reason: pain) Qty: 14 0RF Rx Instructions: May partially fill upon patient request acetaminophen [Tylenol Extra Strength] 500 mg tablet 500 mg PO Q6H PRN (Reason: pain or fever) Qty: 14 0RF lidocaine [Lidoderm] 5 % adhesive patch,medicated 1 patch topical DAILY MDD remove after 12 hours PRN (Reason: pain) Qty: 30 0RF Rx Instructions: leave on most painful area for up to 12 hrs cyclobenzaprine 5 mg tablet 5 mg PO Q8H PRN (Reason: pain (scale score 7-10)) 5 Days Qty: 14 0RF tramadol 50 mg tablet 50 mg PO BID PRN (Reason: pain) Qty: 7 0RF
[2022-02-02] MEDS: Amoxicillin/Potassium Clav 875 MG TABLET PO (19:30)
== END 2022-02-02 19:36 | disposition home or self-care (01) ==
PROVIDERS: Emergency Provider Emergency Medicine
DX: H66.92 Otitis media, unspecified, left ear (principal); H92.02 Otalgia, left ear; Z79.899 Other long term (current) drug therapy
CPT/HCPCS: 99282; 99283

== ENCOUNTER 2023-01-23 09:59 | Outpatient (REF) | payer OTHER, SELFPAY ==
[2023-01-23 11:57] LABS: MANUAL DIFF FLAG NO
[2023-01-23 11:59] LABS: Basophils Absolute Auto 0.1 X10*3/uL (0.0-0.2); Basophils Percent Auto 0.6 % (0-2); Eosinophils Absolute Auto 0.5 X10*3/uL (0.0-0.4); Eosinophils Percent Auto 5.9 % (0-4); Hematocrit 49.4 % (42.0-52.0); Hemoglobin 16.1 g/dl (14.0-18.0); Imm Gran Abs Auto 0.03 X10*3/uL (0.00-0.03); Imm Gran Pct Auto 0.3 % (0.0-0.4); Lymphocytes Absolute Auto 4.3 X10*3/uL (1.2-4.9); Lymphocytes Percent Auto 48.5 % (20-40); Mean Corpuscular HGB Conc 32.6 g/dl (31.0-36.0); Mean Corpuscular Hemoglobin 28.6 pg (27.0-33.0); Mean Corpuscular Volume 87.7 fL (80.0-98.0); Mean Platelet Volume 9.9 fL (9.4-12.4); Monocytes Absolute Auto 0.7 X10*3/uL (0.1-1.2); Monocytes Percent Auto 7.8 % (2-11); Neutrophils Absolute Auto 3.2 x10*3/uL (2.0-8.3); Neutrophils Percent Auto 36.9 % (45-73); Platelet Count 249 X10*3/uL (160-400); Red Blood Count 5.63 X10*6/uL (4.60-5.80); Red Cell Distribution Width 13.8 % (11.0-16.0); White Blood Count 8.8 X10*3/uL (4.8-10.8)
[2023-01-23 12:14] LABS: Alanine Aminotransferase 40 U/L (0-40); Albumin Level 4.1 g/dL (3.5-5.0); Alkaline Phosphatase 95 U/L (39-117); Anion Gap 16 (12-20); Aspartate Amino Transferase 18 U/L (5-37); Bilirubin Total 0.2 mg/dL (0.0-1.0); Blood Urea Nitrogen 19 mg/dL (9-16); Calcium 9.5 mg/dL (8.4-10.2); Carbon Dioxide 27 mmol/L (22-29); Chloride 100 mmol/L (96-108); Estimated Glomerular Filt Rate 56; Glucose Random 95 mg/dL (60-115); Potassium 4.2 mmol/L (3.3-5.1); Sodium 139 mmol/L (135-145); Total Protein 7.5 g/dL (6.5-8.0)
[2023-01-24 08:44] LABS: Absolute CD3 Count 4082 cells/uL (840-3060); Absolute CD4 Count 2199 cells/uL (490-1740); Absolute CD8 Count 1923 cells/uL (180-1170); Absolute Lymphocytes 4930 cells/uL (850-3900); CD4 CD8 Ratio 1.14 (0.86-5.00); Percent CD3 Cells 83 % (57-85); Percent CD4 Cells 45 % (30-61); Percent CD8 Cells 39 % (12-42)
[2023-01-24 17:38] LABS: HIV RNA PCR Qn Copies NOT DETECTED copies/mL (NOT DETECTED); HIV RNA PCR Qn Log Copies NOT DETECTED (NOT DETECTED)
== END 2023-01-23 10:00 | disposition home or self-care (01) ==
LOC: HO.HHCL 09:59
PROVIDERS: Visit Provider Student in an Organized Health Care Education/Training Program
DX: B20 Human immunodeficiency virus [HIV] disease (principal)
CPT/HCPCS: 36415; 80053; 85025; 86359; 86360; 87536

== ENCOUNTER 2023-04-06 10:43 | Outpatient (AMB) | payer OTHER, SELFPAY ==
--- NOTE | 2023-04-06 10:51 | A.OFFVIS_ITS ---
Intake Vital Signs 04/06/23 10:55 Height 5 ft 9 in Weight 190 lb BMI 28.1 Intake Visit Reasons: PULP [employer]- Rt Shoulder pain Intake Note: Martinez is a 48 year old male who presents as a new patient with Right shoulder pain. Patient reports that he had fallen about 2 months ago on his left side but his pain is on the Right shoulder. Patient denies and numbness or tingling. He has not had a cortisone injection. He has tried Tylenol and anti-inflammatory medicines which gave him minimal relief. He reports mild weakness when lifting his right hand above shoulder height. Allergies No Known Allergies Allergy (Verified 04/06/23 10:58) Medication List - Last Reconciled 04/06/23 by Anton Cook MD amoxicillin-pot clavulanate 500-125 mg (Augmentin) 1 tab PO BID amoxicillin-pot clavulanate 875-125 mg 1 tab PO BID 10 days ylfyepxby-aznccctk-mlipbsm ala 50-200-25 mg (Biktarvy) tabs PO ciprofloxacin-dexamethasone 0.3-0.1 % (Ciprodex) 4 drps otic (ears) BID 7 days [facility] Medical History Cervical radiculopathy HIV (human immunodeficiency virus infection) Physical Exam Vital Signs: BMI result Body Mass Index 28.1 Const Other: Well-nourished well-developed very friendly male awake alert and oriented x3 in no acute distress Extrem Other: Bilateral upper extremity examination shows good capillary refill, no skin lesions noted, normal sensation light touch Right shoulder examination shows slightly decreased range of motion when compared to his left shoulder, 4+ out of 5 strength with supraspinatus testing, positive impingement signs, tenderness over his acromioclavicular joint, no instability Office Procedures Joint Injection/Drain Joint Injection/Drain Primary Site: right shoulder Prep: site was prepped using aseptic technique Injected: 40 mg of, DepoMedrol and 1% plain lidocaine Procedure: The patient tolerated the procedure well Coding 83099 - Large joint Procedure code (CPT) selection complete Results Reviewed Results Reviewed: X-rays of the patient's right shoulder show severe acromioclavicular joint narrowing, a type 2 acromion, no acute bony abnormalities Assessment & Plan Assessment & Plan (1) Right shoulder pain: Code(s): M25.511 - Pain in right shoulder Plan Mr. Boyer presents with right shoulder pain due to impingement syndrome, acromioclavicular joint arthritis and possible rotator cuff tearing. I had a lengthy discussion with the patient regarding the treatment options. The risks and benefits of a right shoulder cortisone injection were discussed at length with the patient. The patient wished to proceed. He tolerated the injection well. Will continue with his range of motion exercises. He will contact me prior to his follow-up appointment in 2-3 months should any questions or concerns arise. Feel free to call me at any time should questions regarding his orthopedic management arise. Thank you very much for asking me to see this very friendly gentleman. I spent 22 minutes in reviewing the patient's records and imaging studies, seeing the patient and documenting in the medical record. Orders: Orders XR shoulder RT min 2V Today M25.511 - Pain in right shoulder AMB Joint Injection/Aspiration Today M25.511 - Pain in right shoulder Coding Level of Care Code New Pt Level 2 (76285) Diagnoses Right shoulder pain M25.511 CPT Codes Coding - 16158 Large joint: 58165 - Large joint ([id number])
[2023-04-06 10:55] VITALS: BMI 28.1
== END 2023-04-06 11:28 | disposition home or self-care (01) ==
PROVIDERS: PCP Family Medicine; Visit Provider Orthopaedic Surgery
DX: M25.511 Pain in right shoulder (principal); M75.41 Impingement syndrome of right shoulder
CPT/HCPCS: 20610; 99203

== ENCOUNTER 2023-04-06 11:18 | Outpatient (REF) | payer OTHER, SELFPAY ==
--- NOTE | ~2023-04-06 | XR_ITS ---
EXAMINATION: XR SHOULDER, RIGHT CLINICAL INFORMATION: Pain in the right shoulder COMPARISON: None available. TECHNIQUE: Two views of the right shoulder. FINDINGS: The humeral head is well positioned over the intact glenoid. Glenohumeral joint space is normal: no arthritic deformity, fracture or subluxation. Acromioclavicular joint is normal. The subacromial space is normal. There are no osteophytes projecting from the undersurface of the acromioclavicular joint. No hook-shaped acromion, os acromiale or subacromial enthesophyte. No osseous findings that would predispose to a subacromial impingement disorder. No calcium deposition within rotator cuff tendons. The visualized portion of the right lung is normal. XR/XR shoulder RT min 2V IMPRESSION: Normal right shoulder.
== END 2023-04-06 11:19 | disposition home or self-care (01) ==
LOC: HO.HOSX 11:18
PROVIDERS: Visit Provider Orthopaedic Surgery
DX: M25.511 Pain in right shoulder (principal)
CPT/HCPCS: 20610; 73030; 99202; J1020

== ENCOUNTER 2023-04-21 10:01 | Outpatient (AMB) | payer OTHER, SELFPAY ==
[2023-04-21 10:05] VITALS: BMI 28.1
--- NOTE | 2023-04-21 10:05 | MHC.OFFVIS ---
Intake Vital Signs 04/21/23 10:05 Height 5 ft 9 in Weight 190 lb BMI 28.1 Intake Visit Reasons: New Prob- lt hand pain Intake Note: Ihsan 48 year old male right hand dominant male presents today for an evaluation of right hand. Patient reports about 3 months ago he fell off a stand up scooter injuring his left hand. Currently he has a burning sensation and feels clicking in the ulnar aspect of wrist. Pain increases with ROM.Denies numbness or tingling. No other tx. Allergies No Known Allergies Allergy (Verified 04/06/23 10:58) HPI New Prob- lt hand pain HPI Details 48-year-old right hand dominant male who presents to the office today for evaluation of left-hand pain s/p fall off a stand-up scooter and injuring his left hand, about 3 months ago. He currently states he has a burning sensation and clicking at the ulnar aspect of his wrist which is aggravated with ROM. He denies any numbness or tingling. He has not had any previous treatment. He does not have a history of diabetes. [facility] Medical History Cervical radiculopathy HIV (human immunodeficiency virus infection) Social History (Updated 04/21/23 @ 10:19 by CAROLYN Ghosh) Patient Tobacco Use Status: Current someday Tobacco user Current occupational status: disabled Current occupation: righ hand dominant Review of Systems Const All systems reviewed & are unremarkable except as noted in HPI and below Physical Exam Vital Signs: BMI result Body Mass Index 28.1 Extrem Other: Left wrist: Normal to inspection. He does have tenderness along the scaffold lunate region. Limited ROM due to the pain. He does have a palpable defect over the ulnar side of the wrist. NVI. Results Reviewed Results Reviewed: X-rays of the left wrist obtained in the office today show negative for any acute or chronic abnormalities. Assessment & Plan Assessment & Plan (1) Left wrist sprain: Code(s): S63.502A - Unspecified sprain of left wrist, initial encounter Qualifiers: Encounter type: initial encounter Qualified Code(s): S63.502A - Unspecified sprain of left wrist, initial encounter Plan He was placed in an off the shelf Velcro wrist splint which he will wear for comfort. He can remove this for hygiene and sleeping. An MRI arthrogram of the left wrist has been ordered to further evaluate the extent of his pain. He will see us back once the scan is complete. Orders: Orders XR hand LT min 3V Today M79.642 - Pain in left hand MR wrist LT w con Today S63.502A - Unspecified sprain of left wrist, initial encounter Patient Instructions: Scribed for Francoise Mccarty PA-C, by Harlan Wilde medical records secretary, on 04/21/2023 at 10:00 AM MAURI. Francoise Vega PA-C, have personally reviewed and agree with the information entered by the scribe. Coding Level of Care Code Est Pt Level 3 (24862) Diagnoses Sprain of left wrist, initial encounter S63.502A Encounter type: initial encounter
== END 2023-04-21 10:43 | disposition home or self-care (01) ==
PROVIDERS: PCP Family Medicine; Visit Provider Physician Assistant
DX: S63.502A Unspecified sprain of left wrist, initial encounter (principal)
CPT/HCPCS: 99213

== ENCOUNTER 2023-04-21 10:25 | Outpatient (REF) | payer OTHER, SELFPAY ==
--- NOTE | ~2023-04-21 | XR_ITS ---
EXAMINATION: XR HAND, LEFT CLINICAL INFORMATION: Pain COMPARISON: None TECHNIQUE: 3 views of the hand FINDINGS: Exam is limited by the lack of a true lateral view which also excludes the distal second and third digits from the gadoa-om-[id number]. Well corticated osseous fragment adjacent to the ulnar styloid may reflect sequelae of remote ulnar styloid avulsion fracture or degenerative change. No acute fracture or dislocation. Joint spaces are maintained. No cortical erosion. Soft tissues are unremarkable. XR/XR hand LT min 3V IMPRESSION: 1. Exam is limited by the lack of a true lateral view which also excludes the distal second and third digits from the wndpo-kw-ojiw. Well corticated osseous fragment adjacent to the ulnar styloid may reflect sequelae of remote ulnar styloid avulsion fracture or degenerative change.
== END 2023-04-21 10:26 | disposition home or self-care (01) ==
LOC: HO.HOSX 10:25
PROVIDERS: Visit Provider Physician Assistant
DX: S63.502A Unspecified sprain of left wrist, initial encounter (principal); W05.1XXA Fall from non-moving nonmotorized scooter, initial encounter; Y93.9 Activity, unspecified; Y92.9 Unspecified place or not applicable; Y99.9 Unspecified external cause status
CPT/HCPCS: 73130; 99212

== ENCOUNTER 2023-05-29 12:34 | Outpatient (REF) | payer OTHER, SELFPAY ==
--- NOTE | ~2023-05-29 | FL_ITS ---
LEFT WRIST ARTHROGRAM INDICATIONS: Left wrist pain. Intra-articular gadolinium injection is needed prior to MRI. PROCEDURE: Risks and benefits and possible complications were discussed with the patient and the consent form was signed. The patient was placed prone on the fluoroscopy table. The left wrist was prepped and draped in normal sterile fashion. 1% buffered lidocaine was used for anesthesia. A 25-gauge hypodermic needle was used to access the radiocarpal joint. Intra-articular position of the needle within the radiocarpal joint was verified using 0.5 cc of Omnipaque 300. A total of 2 mL of gadolinium/saline (1:200) contrast mixture was then injected into the radiocarpal joint. The needle was then removed and a Band-Aid was applied to the injection site. The patient tolerated the procedure well and was sent for to MRI. There were no immediate complications. FL/FL arthrogram wrist LT IMPRESSION: Successful fluoroscopic guided intra-articular instillation of dilute gadolinium into the left radiocarpal joint. The patient will undergo subsequent left wrist MRI. The procedure was performed by Lee Hurtado PA-C, and directly supervised by Dr. Mesa.
--- NOTE | ~2023-05-29 | MR_ITS ---
EXAMINATION: MR WRIST WITH INTRA-ARTICULAR CONTRAST, LEFT CLINICAL INFORMATION: Fall. Left wrist pain. COMPARISON: Left wrist fluoroscopic arthrography done earlier the same day and left hand radiographs dated 04/21/2023. TECHNIQUE: Multisequence MR imaging of the left wrist was obtained following the intra-articular injection of contrast on a high-field strength scanner. FINDINGS: TRIANGULAR FIBROCARTILAGE: Heterogeneity with distal surface fraying/partial tearing through the foveal and styloid attachments. No full-thickness triangular fibrocartilage complex tear. INTRINSIC LIGAMENTS: Intact. TENDONS/MEDIAN NERVE: Fluid within the extensor carpi ulnaris tendon sheath with intrasubstance increased T2 signal, consistent with tendinosis and tenosynovitis. No transverse tendon tear or tendon retraction. Intact median nerve. ARTICULAR CARTILAGE/BONE: No acute fracture or dislocation. No marrow edema. No concerning lytic or blastic osseous lesion. Intact articular cartilage. JOINT FLUID/SOFT TISSUES: Small distal radioulnar joint effusion without associated contrast. MR/MR wrist LT w con IMPRESSION: 1. Heterogeneity of the triangular fibrocartilage complex with distal surface fraying/partial tearing through the foveal and styloid attachments. No full-thickness tear. Small distal radioulnar joint effusion without associated contrast. 2. Extensor carpi ulnaris tendinosis and tenosynovitis without a transverse tendon tear or tendon retraction.
[2023-05-29] MEDS: gadobutroL 2 ML VIAL IVPUSH (14:53)
== END 2023-05-29 12:35 | disposition home or self-care (01) ==
LOC: HO.XRAY 12:34
PROVIDERS: PCP Family Medicine; Visit Provider Physician Assistant
DX: S63.502A Unspecified sprain of left wrist, initial encounter (principal); W19.XXXA Unspecified fall, initial encounter; Y93.9 Activity, unspecified; Y92.9 Unspecified place or not applicable; Y99.9 Unspecified external cause status
CPT/HCPCS: 25246; 73115; 73222; A9585

== ENCOUNTER → 2023-05-29 12:36 | Outpatient (BNV) | payer OTHER, SELFPAY | PROVIDERS: PCP Family Medicine; Visit Provider Physician Assistant Surgical | DX: S63.502A Unspecified sprain of left wrist, initial encounter (principal) | CPT/HCPCS: 25246; 73115 ==

== ENCOUNTER 2023-06-08 11:12 | Outpatient (AMB) | payer OTHER, SELFPAY ==
[2023-06-08 11:14] VITALS: BMI 28.1
--- NOTE | 2023-06-08 11:14 | MHC.OFFVIS ---
Intake Vital Signs 06/08/23 11:14 Height 5 ft 9 in Weight 190 lb BMI 28.1 Intake Visit Reasons: ov-Rt Shoulder pain Intake Note: Martinez is a 48 year old Right hand dominate male who presents with Right shoulder pain. Patient reports he had an injection of his Right shoulder on 04/06/2023 and it gave good relief. He states he feels good. He continues with his home stretching program. At this point he is intermittent discomfort is tolerable to him. Allergies No Known Allergies Allergy (Verified 06/08/23 11:19) Medication List - Last Reconciled 06/08/23 by Anton Cook MD qghkxmsti-cnnkxvxe-zzfhfyl ala 50-200-25 mg (Biktarvy) tabs PO PFSH Medical History Cervical radiculopathy HIV (human immunodeficiency virus infection) Social History (Updated 04/21/23 @ 10:19 by Sandy Fuentes Robert) Patient Tobacco Use Status: Current someday Tobacco user Current occupational status: disabled Current occupation: righ hand dominant Physical Exam Vital Signs: BMI result Body Mass Index 28.1 Const Other: Well-nourished well-developed very friendly male awake alert and oriented x3 in no acute distress Extrem Other: Bilateral upper extremity examination shows good capillary refill, no skin lesions noted, normal sensation light touch Right shoulder examination shows full range of motion when compared to his left shoulder, 4+ out of 5 strength with supraspinatus testing, positive impingement signs, no instability Assessment & Plan Assessment & Plan (1) Right shoulder pain: Code(s): M25.511 - Pain in right shoulder Plan Mr. Boyer presents with intermittent right shoulder discomfort due to impingement syndrome and acromioclavicular joint arthritis. I had a lengthy discussion with the patient regarding the treatment options. At this point the patient's symptoms are him. We will hold off on another cortisone injection. The do's and don'ts of lifting were discussed at length with the patient. He will follow up with me on an as-needed basis should his symptoms worsen in any way. Feel free to call me at any time should questions regarding his orthopedic management arise. I spent 22 minutes in reviewing the patient's records and imaging studies, seeing the patient and documenting in the medical record. Coding Level of Care Code Est Pt Level 2 (09538) Diagnoses Right shoulder pain M25.511
== END 2023-06-08 11:35 | disposition home or self-care (01) ==
PROVIDERS: PCP Family Medicine; Visit Provider Orthopaedic Surgery
DX: M25.511 Pain in right shoulder (principal)
CPT/HCPCS: 99213

== ENCOUNTER → 2023-06-08 11:12 | Outpatient (BNVA) | payer OTHER, SELFPAY | PROVIDERS: PCP Family Medicine; Visit Provider Orthopaedic Surgery | DX: M25.511 Pain in right shoulder (principal) | CPT/HCPCS: 99212 ==

== ENCOUNTER 2023-06-08 16:04 | Outpatient (REF) | payer OTHER, SELFPAY ==
[2023-06-08 18:35] LABS: CT PCR NOT DETECTED (Not Detect.); NG PCR NOT DETECTED (Not Detect.)
[2023-06-12 17:13] LABS: C.Trachomatis RNA TMA, Rectal NOT DETECTED; N.Gonorrhoeae RNA TMA, Rectal DETECTED
[2023-06-12 17:28] LABS: C. Trachomatis RNA TMA, Throat NOT DETECTED; N. gonorrhoeae RNA TMA, Throat NOT DETECTED
== END 2023-06-08 16:05 | disposition home or self-care (01) ==
LOC: HO.HHCLNP 16:04
PROVIDERS: Visit Provider Nurse Practitioner Primary Care
DX: Z20.2 Contact with and (suspected) exposure to infections with a predominantly sexual mode of transmission (principal)
CPT/HCPCS: 0353U; 87491; 87591

== ENCOUNTER 2023-06-14 11:38 | Outpatient (REF) | payer OTHER, SELFPAY ==
[2023-06-14 13:33] LABS: MANUAL DIFF FLAG NO
[2023-06-14 13:34] LABS: Basophils Percent Auto 0.3 % (0-2); Eosinophils Absolute Auto 0.3 X10*3/uL (0.0-0.4); Eosinophils Percent Auto 3.5 % (0-4); Hematocrit 46.5 % (42.0-52.0); Hemoglobin 15.1 g/dl (14.0-18.0); Imm Gran Abs Auto 0.02 X10*3/uL (0.00-0.03); Imm Gran Pct Auto 0.3 % (0.0-0.4); Lymphocytes Absolute Auto 3.1 X10*3/uL (1.2-4.9); Lymphocytes Percent Auto 41.4 % (20-40); Mean Corpuscular HGB Conc 32.5 g/dl (31.0-36.0); Mean Corpuscular Volume 89.3 fL (80.0-98.0); Mean Platelet Volume 9.8 fL (9.4-12.4); Monocytes Absolute Auto 0.6 X10*3/uL (0.1-1.2); Monocytes Percent Auto 7.9 % (2-11); Neutrophils Absolute Auto 3.5 x10*3/uL (2.0-8.3); Neutrophils Percent Auto 46.6 % (45-73); Platelet Count 241 X10*3/uL (160-400); Red Blood Count 5.21 X10*6/uL (4.60-5.80); Red Cell Distribution Width 14.4 % (11.0-16.0); White Blood Count 7.5 X10*3/uL (4.8-10.8)
[2023-06-14 13:53] LABS: Cholesterol 218 mg/dL (<200); HDL Cholesterol 38 mg/dL (>40); LDL Cholesterol Calculated 139 mg/dL (<100); Triglycerides 205 mg/dL (<150)
[2023-06-14 14:02] LABS: Estimated Average Glucose 111 mg/dL; Hemoglobin A1c % 5.5 % (<6.0)
[2023-06-15 08:26] LABS: ~HepC Num1 0.08 S/CO (0.00-0.79); ~Hepatitis C Antibody Nonreactive (Nonreactive)
[2023-06-15 11:58] LABS: Absolute CD3 Count 2500 cells/uL (840-3060); Absolute CD4 Count 1204 cells/uL (490-1740); Absolute CD8 Count 1343 cells/uL (180-1170); Absolute Lymphocytes 3159 cells/uL (850-3900); Percent CD3 Cells 79 % (57-85); Percent CD4 Cells 38 % (30-61); Percent CD8 Cells 43 % (12-42)
[2023-06-19 17:24] LABS: RPR Rapid Plasma Reagin NON-REACTIVE (NON-REACTIVE)
== END 2023-06-14 11:39 | disposition home or self-care (01) ==
LOC: HO.HHCL 11:38
PROVIDERS: Visit Provider Nurse Practitioner Primary Care
DX: Z13.6 Encounter for screening for cardiovascular disorders (principal); D72.820 Lymphocytosis (symptomatic); B20 Human immunodeficiency virus [HIV] disease; R73.01 Impaired fasting glucose; A54.9 Gonococcal infection, unspecified; Z20.2 Contact with and (suspected) exposure to infections with a predominantly sexual mode of transmission
CPT/HCPCS: 36415; 80061; 83036; 85025; 86359; 86360; 86592; 86803; 87081

== ENCOUNTER 2023-07-14 13:38 | Outpatient (AMB) | payer OTHER, SELFPAY ==
--- NOTE | 2023-07-14 13:45 | MHC.OFFVIS ---
Intake Visit Reasons: ov-sprain of left wrist mri review Intake Note: Ihsan 48 year old male who presents today for an MRI review of left wrist. Patient reports that he continues to have pain with movements of his wrist. Allergies No Known Allergies Allergy (Verified 07/14/23 13:48) HPI HPI ov-sprain of left wrist mri review: Details: 48-year-old male who returns to the office today for an MRI review of left wrist. He continues to have pain in his wrist with ROM. He also c/o limited ROM of his wrist. [facility] Medical History Cervical radiculopathy HIV (human immunodeficiency virus infection) Social History Patient Tobacco Use Status: Current someday Tobacco user Current occupational status: disabled Current occupation: righ hand dominant Review of Systems Const All systems reviewed & are unremarkable except as noted in HPI and below Physical Exam Extrem Other: Left wrist: Normal to inspection. He does have tenderness along the scaffold lunate region. Limited ROM due to the pain. He does have a palpable defect over the ulnar side of the wrist resembling lipoma. NVI. Results Reviewed Results Reviewed: MR wrist LT w con 05/29/23 IMPRESSION: 1. Heterogeneity of the triangular fibrocartilage complex with distal surface fraying/partial tearing through the foveal and styloid attachments. No full-thickness tear. Small distal radioulnar joint effusion without associated contrast. 2. Extensor carpi ulnaris tendinosis and tenosynovitis without a transverse tendon tear or tendon retraction. Assessment & Plan Assessment & Plan (1) Left wrist sprain: Code(s): S63.502A - Unspecified sprain of left wrist, initial encounter Category: Medical Qualifiers: Encounter type: initial encounter Qualified Code(s): S63.502A - Unspecified sprain of left wrist, initial encounter Plan We discussed options which include OT, NSAIDs and continued immobilization. The patient will proceed with OT and NSAIDs prn. If symptoms persist, the patient will contact our office for an appt with Dr Browne for further recommendations, otherwise, prn. Orders: Orders OT Evaluation and Treatment 07/14/23 S63.502A - Unspecified sprain of left wrist, initial encounter Patient Instructions: Scribed for Ta-Cristal Meuse, PA-C, by Harlan Wilde, medical grade shoemaker, on 07/14/2023 at 1:45 PM Francoise HERNANDEZ PA-C, have personally reviewed and agree with the information entered by the scribe.
== END 2023-07-14 14:36 | disposition home or self-care (01) ==
PROVIDERS: PCP Family Medicine; Visit Provider Physician Assistant
DX: S63.502A Unspecified sprain of left wrist, initial encounter (principal)
CPT/HCPCS: 99213

== ENCOUNTER → 2023-07-14 13:38 | Outpatient (BNVA) | payer OTHER, SELFPAY | PROVIDERS: PCP Family Medicine; Visit Provider Physician Assistant | DX: S63.502A Unspecified sprain of left wrist, initial encounter (principal); X58.XXXA Exposure to other specified factors, initial encounter; Y93.9 Activity, unspecified; Y92.9 Unspecified place or not applicable; Y99.9 Unspecified external cause status | CPT/HCPCS: 99212 ==

== ENCOUNTER 2023-07-25 13:49 | Outpatient (REF) | payer OTHER, SELFPAY ==
[2023-07-25 16:01] LABS: MANUAL DIFF FLAG NO
[2023-07-25 16:08] LABS: Basophils Percent Auto 0.3 % (0-2); Eosinophils Absolute Auto 0.2 X10*3/uL (0.0-0.4); Eosinophils Percent Auto 2.3 % (0-4); Hematocrit 45.8 % (42.0-52.0); Hemoglobin 15.4 g/dl (14.0-18.0); Imm Gran Abs Auto 0.02 X10*3/uL (0.00-0.03); Imm Gran Pct Auto 0.3 % (0.0-0.4); Lymphocytes Absolute Auto 2.2 X10*3/uL (1.2-4.9); Lymphocytes Percent Auto 34.5 % (20-40); Mean Corpuscular HGB Conc 33.6 g/dl (31.0-36.0); Mean Corpuscular Hemoglobin 29.2 pg (27.0-33.0); Mean Corpuscular Volume 86.7 fL (80.0-98.0); Mean Platelet Volume 9.9 fL (9.4-12.4); Monocytes Absolute Auto 0.5 X10*3/uL (0.1-1.2); Monocytes Percent Auto 7.7 % (2-11); Neutrophils Absolute Auto 3.6 x10*3/uL (2.0-8.3); Neutrophils Percent Auto 54.9 % (45-73); Platelet Count 229 X10*3/uL (160-400); Red Blood Count 5.28 X10*6/uL (4.60-5.80); Red Cell Distribution Width 14.2 % (11.0-16.0); White Blood Count 6.5 X10*3/uL (4.8-10.8)
[2023-07-25 16:44] LABS: Alanine Aminotransferase 14 U/L (0-40); Albumin Level 4.2 g/dL (3.5-5.0); Alkaline Phosphatase 70 U/L (39-117); Anion Gap 14 (12-20); Aspartate Amino Transferase 16 U/L (5-37); Bilirubin Total 0.8 mg/dL (0.0-1.0); Blood Urea Nitrogen 24 mg/dL (9-16); Carbon Dioxide 26 mmol/L (22-29); Chloride 102 mmol/L (96-108); Estimated Glomerular Filt Rate 47; Glucose Random 120 mg/dL (60-115); Potassium 3.3 mmol/L (3.3-5.1); Sodium 139 mmol/L (135-145); Total Protein 7.3 g/dL (6.5-8.0)
[2023-07-26 04:21] LABS: HBc Num1 3.88 S/CO (0.00-0.79); HBsAGNum1 0.24 S/CO (0.00-0.99); Hepatitis B Surface Antigen Negative (Negative); ~Hepatitis B Surface Antibody REACTIVE (Nonreactive)
[2023-07-26 05:14] LABS: HBc Num2 3.98 S/CO; HBc Num3 3.88 S/CO; Hepatitis B Core Antibody Reactive (Nonreactive)
[2023-07-26 08:48] LABS: Absolute CD3 Count 1793 cells/uL (840-3060); Absolute CD4 Count 1106 cells/uL (490-1740); Absolute CD8 Count 706 cells/uL (180-1170); Absolute Lymphocytes 2212 cells/uL (850-3900); CD4 CD8 Ratio 1.57 (0.86-5.00); Percent CD3 Cells 81 % (57-85); Percent CD4 Cells 50 % (30-61); Percent CD8 Cells 32 % (12-42)
[2023-07-27 03:28] LABS: Rubella IgG Antibody 1.92 Index
[2023-07-27 07:52] LABS: Hepatitis B Core Antibody IgM NON-REACTIVE (NON-REACTIVE)
[2023-07-27 17:59] LABS: HIV RNA PCR Qn Copies NOT DETECTED copies/mL (NOT DETECTED); HIV RNA PCR Qn Log Copies NOT DETECTED (NOT DETECTED)
== END 2023-07-25 13:50 | disposition home or self-care (01) ==
LOC: HO.HHCL 13:49
PROVIDERS: Visit Provider Student in an Organized Health Care Education/Training Program
DX: B20 Human immunodeficiency virus [HIV] disease (principal)
CPT/HCPCS: 36415; 80053; 85025; 86359; 86360; 86704; 86705; 86706; 86735; 86762; 86765; 86787; 87340; 87536

== ENCOUNTER 2023-09-11 10:41 | Outpatient (REF) | payer OTHER, SELFPAY ==
[2023-09-11 12:13] LABS: Alanine Aminotransferase 26 U/L (0-40); Albumin Level 4.6 g/dL (3.5-5.0); Alkaline Phosphatase 90 U/L (39-117); Anion Gap 14 (12-20); Aspartate Amino Transferase 18 U/L (5-37); Bilirubin Total 0.3 mg/dL (0.0-1.0); Blood Urea Nitrogen 16 mg/dL (9-16); Carbon Dioxide 33 mmol/L (22-29); Chloride 99 mmol/L (96-108); Estimated Glomerular Filt Rate 46; Glucose Random 97 mg/dL (60-115); Potassium 3.5 mmol/L (3.3-5.1); Sodium 142 mmol/L (135-145)
== END 2023-09-11 10:42 | disposition home or self-care (01) ==
LOC: HO.HHCL 10:41
PROVIDERS: Visit Provider Student in an Organized Health Care Education/Training Program
DX: B20 Human immunodeficiency virus [HIV] disease (principal)
CPT/HCPCS: 36415; 80053; 88112

== ENCOUNTER 2023-09-14 16:02 | Outpatient (REF) | payer OTHER, SELFPAY ==
--- NOTE | ~2023-09-14 | US_ITS ---
EXAMINATION: US RETROPERITONEAL LIMITED (RENAL ONLY) CLINICAL INFORMATION: Patient with chronic kidney disease, worsening renal function. COMPARISON: CT abdomen and pelvis 07/23/2021. Ultrasound renal 09/10/2019. TECHNIQUE: Real-time imaging of the kidneys. Limited visualization due to bowel gas. FINDINGS: RIGHT KIDNEY: 10.0 x 5.4 x 6.0 cm (SAG x AP x TRV). No hydronephrosis. No renal calculi. Renal cortical thickness is normal. Limited visualization. LEFT KIDNEY: 9.8 x 4.8 x 4.4 cm (SAG x AP x TRV). No hydronephrosis. No renal calculi. Renal cortical thickness is normal. Limited visualization. US/US renal BI IMPRESSION: No hydronephrosis. No renal calculi. Limited visualization.
== END 2023-09-14 16:03 | disposition home or self-care (01) ==
LOC: HO.US 16:02
PROVIDERS: PCP Nurse Practitioner Primary Care; Visit Provider Student in an Organized Health Care Education/Training Program
DX: N18.31 Chronic kidney disease, stage 3a (principal)
CPT/HCPCS: 76775

== ENCOUNTER 2024-04-18 13:25 | Outpatient (REF) | payer OTHER, SELFPAY ==
[2024-04-18 16:45] LABS: MANUAL DIFF FLAG NO
[2024-04-18 16:53] LABS: Basophils Percent Auto 0.5 % (0-2); Eosinophils Absolute Auto 0.2 X10*3/uL (0.0-0.4); Eosinophils Percent Auto 2.1 % (0-4); Hemoglobin 16.2 g/dl (14.0-18.0); Imm Gran Abs Auto 0.03 X10*3/uL (0.00-0.03); Imm Gran Pct Auto 0.3 % (0.0-0.4); Lymphocytes Absolute Auto 2.9 X10*3/uL (1.2-4.9); Lymphocytes Percent Auto 33.3 % (20-40); Mean Corpuscular HGB Conc 33.1 g/dl (31.0-36.0); Mean Corpuscular Hemoglobin 28.7 pg (27.0-33.0); Mean Corpuscular Volume 86.7 fL (80.0-98.0); Mean Platelet Volume 9.6 fL (9.4-12.4); Monocytes Absolute Auto 0.7 X10*3/uL (0.1-1.2); Monocytes Percent Auto 8.3 % (2-11); Neutrophils Absolute Auto 4.9 x10*3/uL (2.0-8.3); Neutrophils Percent Auto 55.5 % (45-73); Platelet Count 288 X10*3/uL (160-400); Red Blood Count 5.65 X10*6/uL (4.60-5.80); Red Cell Distribution Width 14.5 % (11.0-16.0); White Blood Count 8.8 X10*3/uL (4.8-10.8)
[2024-04-18 17:09] LABS: Alanine Aminotransferase 45 U/L (0-40); Albumin Level 4.4 g/dL (3.5-5.0); Alkaline Phosphatase 88 U/L (39-117); Anion Gap 12 (12-20); Aspartate Amino Transferase 36 U/L (5-37); Bilirubin Total 0.5 mg/dL (0.0-1.0); Blood Urea Nitrogen 21 mg/dL (9-16); Calcium 9.6 mg/dL (8.4-10.2); Carbon Dioxide 30 mmol/L (22-29); Chloride 99 mmol/L (96-108); Estimated Glomerular Filt Rate 52; Glucose Random 144 mg/dL (60-115); Potassium 3.4 mmol/L (3.3-5.1); Sodium 138 mmol/L (135-145); Total Protein 8.1 g/dL (6.5-8.0)
[2024-04-20 17:43] LABS: HIV RNA PCR Qn Copies NOT DETECTED copies/mL (NOT DETECTED); HIV RNA PCR Qn Log Copies NOT DETECTED (NOT DETECTED)
[2024-04-22 18:58] LABS: Absolute CD3 Count 2274 cells/uL (840-3060); Absolute CD4 Count 1180 cells/uL (490-1740); Absolute CD8 Count 1126 cells/uL (180-1170); Absolute Lymphocytes 2968 cells/uL (850-3900); CD4 CD8 Ratio 1.05 (0.86-5.00); Percent CD3 Cells 77 % (57-85); Percent CD4 Cells 40 % (30-61); Percent CD8 Cells 38 % (12-42)
== END 2024-04-18 13:26 | disposition home or self-care (01) ==
LOC: HO.HHCL 13:25
PROVIDERS: Visit Provider Student in an Organized Health Care Education/Training Program
DX: Z21 Asymptomatic human immunodeficiency virus [HIV] infection status (principal)
CPT/HCPCS: 36415; 80053; 85025; 86359; 86360; 87536

== ENCOUNTER 2024-07-12 15:11 | Emergency (ER) | payer OTHER, SELFPAY ==
--- NOTE | ~2024-07-12 | XR_ITS ---
EXAMINATION: XR LUMBOSACRAL SPINE CLINICAL INFORMATION: left lower back pain COMPARISON: None available. TECHNIQUE: Three views of the lumbosacral spine. FINDINGS: The vertebral bodies and posterior elements are normal. The disc spaces are preserved and the vertebral alignment is normal. The paraspinal soft tissues are normal. XR/XR lumbar spine 2-3V IMPRESSION: Normal lumbar spine radiographs. Electronically signed by: Zuhair Mesa MD 07/12/2024 03:29 PM EDT
[2024-07-12 15:12] VITALS: BP 128/75; PULSE 83; RESP 20; TEMP 37.1; O2SAT 98; BMI 25.0
--- NOTE | 2024-07-12 15:13 | ED.GENADULT ---
HPI - General Adult General Chief complaint: Back Pain/Injury Stated complaint: l side pain Time Seen by Provider: 07/12/24 16:02 History of Present Illness ED Provider: Josef Guallpa MD HPI narrative: 49-year-old male w/ well controlled HIV who presents with worsening left lower lumbosacral/lateral low back pain he was moving furniture several days ago leaned forward and lifted up he did not feel a sudden sharp pain but gradually throughout that day and since then worsening pain particularly with rotation of the torso to the left lower quadrant. No back pain centrally or midline no history of back surgeries denies numbness tingling weakness he has been able to ambulate well. No IV drug use Related Data Home Medications ?Medication ?Instructions ?Recorded ?Confirmed bictegravir 50 mg-emtricitabine tab PO 04/06/23 06/08/23 200 mg-tenofovir alafenam 25 mg tablet (Biktarvy) Previous Rx's ?Medication ?Instructions ?Recorded methocarbamol 750 mg tablet 750 mg PO Q8H PRN pain (scale 07/12/24 score 7-10) #10 tabs Allergies Allergy/AdvReac Type Severity Reaction Status Date / Time No Known Allergies Allergy Verified 07/12/24 15:15 [facility] Past Medical History Medical History Cervical radiculopathy HIV (human immunodeficiency virus infection) Social History Social History Patient Tobacco Use Status: Current someday Tobacco user Advance Directives: No Advance Directives Information Provided: Yes Current occupational status: disabled Current occupation: righ hand dominant Physical Exam ED Vital Signs: Vital Signs - 24 hr 07/12/24 15:12 07/12/24 16:19 07/12/24 17:19 Temperature 98.7 F 98.5 F 98.5 F Pulse Rate 83 86 86 Respiratory Rate 20 14 14 Blood Pressure 128/75 134/66 134/66 Pulse Oximetry 98 97 97 Oxygen Delivery Method Room Air Room Air BMI result Body Mass Index 25.0 Const Other: EXAM: Gen: Alert, awake, well appearing, well hydrated. Head: Atraumatic Eyes: Anicteric, Normal conjunctiva. ENT: Moist mucosa, no pallor. ? Neck: Supple. Respiratory: Breathing comfortably, No distress.Clear to auscultation bilaterally, symmetric chest expansion, No wheeze, rales, ronchi. Cardiovascular: Regular rate and rhythm. No murmurs or rub. Well perfused periphery, warm extremities. No edema. ? Abdominal: Soft, no objective distension. No palpable masses or obvious organomegaly. No focal tenderness, no guarding, no rebound tenderness or other peritoneal findings. : No flank tenderness. MSK: Left low back lateral back musculature tender with spasm palpable. No bony tenderness midline or pelvic or sacral Neuro: Alert. Gross movement of all extremities intact. ? Vital signs: See flowsheet Course Course Course Narrative: This is a Rapid Medical Examination (RME) performed by Deniz Guzman PA-C in triage. Full HPI, ROS, assessment and treatment plan per primary provider in the Main ED. 07/12/24 [id number] YAYO Ortiz Hx: 49 yo male hx HIV, CKD here for eval of intermittent left flank flank x hours. no radiation of pain. admits to helping his mother move a couch 5 days ago. assoc nausea w/o vomiting. no urinary symptoms. no blunt injury/trauma. PE/vitals: no cvat. Plan: labs, UA, xr Medications Administered Discontinued Medications Generic Name Dose Route Start Last Admin Trade Name Alexiq PRN Reason Stop Dose Admin Acetaminophen 975 mg 07/12/24 16:40 07/12/24 17:04 Acetaminophen 325 Mg Tablet PO 07/12/24 16:41 975 mg ONCE ONE Administration Lidocaine 1 patch 07/12/24 16:40 07/12/24 17:04 Lidocaine 4 % Patch Adh..Patch TRANSDERMA 07/12/24 16:41 1 patch ONCE ONE Administration Protocol Methocarbamol 750 mg 07/12/24 16:40 07/12/24 17:04 Methocarbamol 750 Mg Tablet PO 07/12/24 16:41 750 mg ONCE ONE Administration Procedures Procedure Narrative Procedure Narrative: EMERGENCY ULTRASOUND INTERPRETATION-Limited Retroperitoneal (Renal) [This study was ordered, performed, and interpreted by myself. The study reveals: Impression: NO EVIDENCE OF UROLOGIC OBSTRUCTION] [Indication: FLANK PAIN Left Kidney: NO HYDRONEPHROSIS Performed by: Josef Guallpa MD CPT: 30196] Medical Decision Making Medical Decision Making MDM Narrative: 49-year-old male with likely lumbosacral low back musculoskeletal strain. CKD. No upper CVA tenderness or urologic symptoms to suggest kidney stone or pyelonephritis though this was considered. No bruising no other trauma. No neurologic signs or symptoms to suggest acute central nervous system compression or infection Lab Data MDM Lab Attestation statement: I reviewed the patient's lab results. 07/12/24 15:46 07/12/24 15:46 Labs: Lab Results 07/12/24 07/12/24 Range/Units 15:46 16:31 WBC 7.1 (4.8-10.8) X10*3/uL RBC 5.38 (4.60-5.80) X10*6/uL Hgb 15.6 (14.0-18.0) g/dl Hct 46.4 (42.0-52.0) % MCV 86.2 (80.0-98.0) fL MCH 29.0 (27.0-33.0) pg MCHC 33.6 (31.0-36.0) g/dl RDW 14.2 (11.0-16.0) % Plt Count 185 D (160-400) X10*3/uL MPV 9.6 (9.4-12.4) fL Immature Gran % (Auto) 0.1 (0.0-0.4) % Neut % (Auto) 50.8 (45-73) % Lymph % (Auto) 30.7 (20-40) % Stevens % (Auto) 14.6 H (2-11) % Eos % (Auto) 3.4 (0-4) % Baso % (Auto) 0.4 (0-2) % Lymph # (Auto) 2.2 (1.2-4.9) X10*3/uL Stevens # (Auto) 1.0 (0.1-1.2) X10*3/uL Eos # (Auto) 0.2 (0.0-0.4) X10*3/uL Baso # (Auto) 0.0 (0.0-0.2) X10*3/uL Abs Immat Gran (auto) 0.01 (0.00-0.03) X10*3/uL Absolute Neuts (auto) 3.6 (2.0-8.3) x10*3/uL Absolute Nucleated RBC 0.000 (0.0-0.012) X10*3/uL Nucleated RBC % (auto) 0.0 (0.0-0.2) /100WBC Sodium 139 (135-145) mmol/L Potassium 3.9 (3.3-5.1) mmol/L Chloride 100 (96-108) mmol/L Carbon Dioxide 32 H (22-29) mmol/L Anion Gap 11 L (12-20) BUN 15 (9-16) mg/dL Creatinine 1.27 (0.5-1.4) mg/dL Estim Creat Clear Calc 71.1 Estimated GFR > 60 Random Glucose 94 (60-115) mg/dL Calcium 9.1 (8.4-10.2) mg/dL Magnesium 2.5 (1.6-2.6) mg/dL Total Bilirubin 0.3 (0.0-1.0) mg/dL AST 22 (5-37) U/L ALT 29 (0-40) U/L Alkaline Phosphatase 90 (39-117) U/L Total Protein 7.5 (6.5-8.0) g/dL Albumin 4.1 (3.5-5.0) g/dL Urine Color Yellow Urine Appearance Clear Urine pH 6.5 (5.0-9.0) Ur Specific [place] 1.020 (1.005-1.025) Urine Protein Negative (Neg-Trace) mg/dL Urine Glucose (UA) Negative (Negative) mg/dL Urine Ketones Negative (Negative) mg/dL Urine Blood Negative (Negative) Urine Nitrite Negative (Negative) Ur Leukocyte Esterase Negative (Negative) Discharge Plan Discharge Clinical Impression: Lumbar radiculopathy Patient Disposition: Home, Self-Care Instructions: Acute Low Back Pain (ED) Additional Instructions: DISCHARGE DIAGNOSES: Left low back pain likely musculoskeletal strain/spasm HISTORY OF PRESENTATION: ?Pain after lifting furniture left low back EMERGENCY DEPARTMENT COURSE,TESTS, TREATMENTS: While in the ED today you had basic lab work which was reassuring a lumbosacral bony x-ray which showed no abnormalities and were examined and provided Tylenol, methocarbamol and muscle relaxant and lidocaine patch which can also get [id number] DISCHARGE MEDICATIONS: ?[We have made no changes to your regular medication regimen] we have prescribed methocarbamol muscle relaxant and recommend getting [id number] Tylenol lidocaine patches and/or topical medications such as diclofenac gel to apply to the area FOLLOW-UP: ?Call your primary or general physician soon as possible to discuss your symptoms, your ED visit and to discuss follow up plans Call your primary doctor for follow-up INSTRUCTIONS ?& RETURN PRECAUTIONS: If any symptoms change first call your primary physician, if it is after-hours your primary doctors office should have a provider nurseryperson you can speak with. If the symptoms are severe or very concerning to you then call 911 or return to the ED. Return to the ED if you develop numbness tingling weakness difficulty moving her bowels or urinating or severe worsening of your pain or high fevers Josef Guallpa MD Emergency Physician [facility] Prescriptions: New methocarbamol 750 mg tablet 750 mg PO Q8H PRN (Reason: pain (scale score 7-10)) Qty: 10 0RF No Action Biktarvy 50-200-25 mg tablet PO Interventions: ED Discharge Assessment Last Done: 07/12/24 17:19 Discharge Date/Time: 07/12/24 17:20 Print Language: Luxembourger
--- OUTSIDE RECORDS SUMMARY | 2024-07-12 15:46 | XMS_ITS | Encounter Summary ---
Author Organization [facility], Address [address] [place] [address] Phone Care Team Providers Care Lapel Stitcher Name Role Phone Shana Lin Primary Care Provid er Encounter Details Date Type Department Care Team (Late st Contact Info) Description 12/05/2023 Documentation Only [facility], [address] [place] [address] Hawk Powers MD [address] [place] [address] Social History Tobacco Use Types Packs/Day Years Used Date Smoking Tobacco: Some Days Alcohol Use Standard Drinks/Week Comments Yes 0 (1 standard drink = 0.6 oz pure alcohol) Alcoholic Drinks/day: Occasional social drink Sex and Gender Information Value Date Recorded Sex Assigned at Not on file Legal Sex Male 4:48 PM EST Gender Identity Not on file Sexual Orientation Not on file documented as of this encounter Plan of Treatment Not on file documented as of this encounter Visit Diagnoses Not on filedocumented in this encounter Care Teams Lapel Stitcher Relationship Specialty Start Date End Date Shana Lin Gabriela [address] [place] [address] [phone] PCP - General 10/11/23 documented as of this encounter
--- OUTSIDE RECORDS SUMMARY | 2024-07-12 15:46 | XMS_ITS | Clinical Summary ---
Author Organization [facility], Address [address] [place] [address] [place] [address] Phone Care Team Providers Care Chemotherapist Name Role Phone Deven Darien Shana oDyle Primary Care Provid er Medications nicotine (NICODERM CQ) 7 MG/24HR Apply 1 patch topically 1 (one) time each day Active Melatonin 10 MG capsule Take 1 capsule by mouth at bed time Active fluticasone (Flonase) 50 MCG/ACT nasal spray Active cetirizine (ZyrTEC) 10 MG tablet Take 1 tablet by mouth 1 (one) time each day Active Bictegravir-Emt ricitab-Tenofov (Biktarvy) 50-200-25 MG tablet Take 1 tablet by mouth at bed time Active neomycin-bacitr acin-polymyxin- hydrocortisone (CORTISPORIN) 1 % ophthalmic ointment Active Multiple Vitamin (multivitamin) capsule Take 1 capsule by mouth 1 (one) time each day Active Active Problems Problem Noted Date Diagnosed Date Chronic kidney disease stage 3 04/22/2021 Social History Tobacco Use Types Packs/Day Years Used Date Smoking Tobacco: Some Days Alcohol Use Standard Drinks/Week Comments Yes 0 (1 standard drink = 0.6 oz pure alcohol) Alcoholic Drinks/day: Occasional social drink Sex and Gender Information Value Date Recorded Sex Assigned at Not on file Legal Sex Male 4:48 PM EST Gender Identity Not on file Sexual Orientation Not on file Plan of Treatment Health Maintenance Due Date Last Done Comments Hepatitis B Vaccine (1 of 3 - 19+ 3-dose series) 03/13 Pneumococcal Vaccine: Peds ( 0 to 5 Years) and At-Risk Patients (6 to 49 Years) (1 of 2 - PCV) 1995 Influenza Vaccine (Season Ended) 2024 Insurance [facility] DUKE ([id number]) [facility] Dual SNP ([id number]) Care Teams Chemotherapist Relationship Specialty Start Date End Date Shana Lin [address] [place] [id number] PCP - General 10/11/23
[2024-07-12 15:50] LABS: MANUAL DIFF FLAG NO
[2024-07-12 15:51] LABS: Basophils Percent Auto 0.4 % (0-2); Eosinophils Absolute Auto 0.2 X10*3/uL (0.0-0.4); Eosinophils Percent Auto 3.4 % (0-4); Hematocrit 46.4 % (42.0-52.0); Hemoglobin 15.6 g/dl (14.0-18.0); Imm Gran Abs Auto 0.01 X10*3/uL (0.00-0.03); Imm Gran Pct Auto 0.1 % (0.0-0.4); Lymphocytes Absolute Auto 2.2 X10*3/uL (1.2-4.9); Lymphocytes Percent Auto 30.7 % (20-40); Mean Corpuscular HGB Conc 33.6 g/dl (31.0-36.0); Mean Corpuscular Volume 86.2 fL (80.0-98.0); Mean Platelet Volume 9.6 fL (9.4-12.4); Monocytes Percent Auto 14.6 % (2-11); Neutrophils Absolute Auto 3.6 x10*3/uL (2.0-8.3); Neutrophils Percent Auto 50.8 % (45-73); Platelet Count 185 X10*3/uL (160-400); Red Blood Count 5.38 X10*6/uL (4.60-5.80); Red Cell Distribution Width 14.2 % (11.0-16.0); White Blood Count 7.1 X10*3/uL (4.8-10.8)
[2024-07-12 16:13] LABS: Alanine Aminotransferase 29 U/L (0-40); Albumin Level 4.1 g/dL (3.5-5.0); Anion Gap 11 (12-20); Aspartate Amino Transferase 22 U/L (5-37); Bilirubin Total 0.3 mg/dL (0.0-1.0); Blood Urea Nitrogen 15 mg/dL (9-16); Calcium 9.1 mg/dL (8.4-10.2); Carbon Dioxide 32 mmol/L (22-29); Chloride 100 mmol/L (96-108); Creatinine Clr Calc Pharmacy 71.1; Estimated Glomerular Filt Rate > 60; Glucose Random 94 mg/dL (60-115); Magnesium 2.5 mg/dL (1.6-2.6); Potassium 3.9 mmol/L (3.3-5.1); Sodium 139 mmol/L (135-145); Total Protein 7.5 g/dL (6.5-8.0)
[2024-07-12 16:19] VITALS: BP 134/66; PULSE 86; RESP 14; TEMP 36.9; O2SAT 97
[2024-07-12 16:43] LABS: Appearance Urine Clear; Color Urine Yellow; Glucose Urine UA Negative (Negative); Leukocyte Esterase Urine Negative (Negative); Nitrite Urine Negative (Negative); PH 6.5 (5.0-9.0); Urine Blood Negative (Negative); Urine Ketones Negative (Negative); Urine Protein Negative (Neg-Trace)
[2024-07-12] MEDS: Acetaminophen 325 MG TABLET 975 MG PO (17:04)
[2024-07-12] MEDS: methocarbamoL 750 MG TABLET PO (17:04)
[2024-07-12] MEDS: Lidocaine 4 % Patch ADH..PATCH 1 PATCH TRANSDERMA (17:04)
[2024-07-12 17:19] VITALS: BP 134/66; PULSE 86; RESP 14; TEMP 36.9; O2SAT 97
[2024-07-12 18:40] LABS: Alkaline Phosphatase 90 U/L (39-117)
== END 2024-07-12 17:20 | disposition home or self-care (01) ==
PROVIDERS: Physician Assistant Medical; Emergency Provider Emergency Medicine; PCP Nurse Practitioner Primary Care
DX: M54.16 Radiculopathy, lumbar region (principal); Z79.899 Other long term (current) drug therapy
CPT/HCPCS: 36415; 72100; 80053; 81003; 83735; 85025; 99283; 99284

== ENCOUNTER → 2024-07-12 15:15 | Outpatient (BNV) | payer OTHER, SELFPAY | PROVIDERS: Emergency Provider Emergency Medicine; PCP Nurse Practitioner Primary Care; Visit Provider Radiology Diagnostic Radiology | DX: M54.50 Low back pain, unspecified (principal) | CPT/HCPCS: 72100 ==

== ENCOUNTER 2024-10-28 16:34 | Outpatient (REF) | payer OTHER, SELFPAY ==
--- OUTSIDE RECORDS SUMMARY | 2024-10-28 16:36 | XMS_ITS | Clinical Summary ---
Author Organization [facility], Address [address] [place] [address] [place] [address] Phone Care Team Providers Care Major Assembler Name Role Phone Deven Darien Shana Doyle Primary Care Provid er Medications nicotine (NICODERM [...] of 2 - PCV) 1995 Influenza Vaccine (#1) 2024 Insurance [facility] [employer] ([id number]) [facility] Dual SNP ([id number]) Care Teams Major Assembler Relationship Specialty Start Date End Date Shana Lin [address] [place] [phone] PCP - General 10/11/23
[2024-10-29 10:41] LABS: CT PCR Urine NOT DETECTED (Not Detect.); NG PCR Urine NOT DETECTED (Not Detect.)
[2024-10-29 18:19] LABS: C. Trachomatis RNA TMA, Throat NOT DETECTED (NOT DETECTED); C.Trachomatis RNA TMA, Rectal NOT DETECTED (NOT DETECTED); N. gonorrhoeae RNA TMA, Throat NOT DETECTED (NOT DETECTED); N.Gonorrhoeae RNA TMA, Rectal NOT DETECTED (NOT DETECTED)
== END 2024-10-28 16:35 | disposition home or self-care (01) ==
LOC: HO.LNP 16:34
PROVIDERS: Visit Provider Nurse Practitioner Primary Care
DX: Z11.3 Encounter for screening for infections with a predominantly sexual mode of transmission (principal); Z11.8 Encounter for screening for other infectious and parasitic diseases
CPT/HCPCS: 87491; 87591

== ENCOUNTER 2024-11-15 08:08 | Outpatient (REF) | payer OTHER, SELFPAY ==
--- OUTSIDE RECORDS SUMMARY | 2024-11-15 08:15 | XMS_ITS | Clinical Summary ---
Author Organization [facility], Address [address] [place] [address] [place] [address] Phone Care Team Providers Care Gunstock Spray Unit Feeder Name Role Phone Deven Darien Shana Doyle [...] PCV) 1995 Influenza Vaccine (#1) 2024 Insurance [facility] [employer] ([id number]) [facility] Dual SNP ([id number]) Care Teams Gunstock Spray Unit Feeder Relationship Specialty Start Date End Date Shana Lin [address] [place] [id number] PCP - General 10/11/23
[2024-11-15 12:01] LABS: MANUAL DIFF FLAG NO
[2024-11-15 12:04] LABS: Hematocrit 47.8 % (42.0-52.0); Hemoglobin 16.0 g/dl (14.0-18.0); Imm Gran Abs Auto 0.04 X10*3/uL (0.00-0.03); Imm Gran Pct Auto 0.4 % (0.0-0.4); Lymphocytes Absolute Auto 2.3 X10*3/uL (1.2-4.9); Mean Corpuscular HGB Conc 33.5 g/dl (31.0-36.0); Mean Corpuscular Hemoglobin 29.0 pg (27.0-33.0); Mean Corpuscular Volume 86.6 fL (80.0-98.0); NRBC Abs Auto 0.000 X10*3/uL (0.0-0.012); NRBC Pct Auto 0.0 /100WBC (0.0-0.2); Platelet Count 248 X10*3/uL (160-400); Red Blood Count 5.52 X10*6/uL (4.60-5.80); White Blood Count 10.3 X10*3/uL (4.8-10.8)
[2024-11-15 12:12] LABS: INTERNATIONAL NORM RATIO 0.9 (0.9-1.1); Prothrombin Time 10.1 SEC (10.9-12.4)
[2024-11-15 12:23] LABS: Hemoglobin A1C 156.9715 umol/L; Total Hemoglobin (HGBA1C) 4222.3556 umol/L
[2024-11-15 12:38] LABS: Alanine Aminotransferase 17 U/L (0-40); Albumin Level 4.5 g/dL (3.5-5.0); Alkaline Phosphatase 80 U/L (39-117); Anion Gap 13 (12-20); Aspartate Amino Transferase 26 U/L (5-37); Blood Urea Nitrogen 19 mg/dL (9-16); Calcium 9.2 mg/dL (8.4-10.2); Carbon Dioxide 27 mmol/L (22-29); Chloride 102 mmol/L (96-108); Cholesterol 201 mg/dL (<200); Estimated Glomerular Filt Rate > 60; HDL Cholesterol 42 mg/dL (>40); Potassium 3.7 mmol/L (3.3-5.1); Sodium 138 mmol/L (135-145); Total Protein 7.4 g/dL (6.5-8.0); Triglycerides 151 mg/dL (<150)
[2024-11-15 14:01] LABS: Vitamin B12 625 pg/mL (200-900)
[2024-11-15 14:17] LABS: Reflex LDLD? No
[2024-11-16 08:38] LABS: HBS Num1 262.25 mIU/mL (0-7.99); HBc Num1 5.77 S/CO (0.00-0.79); ~HepC Num1 0.10 S/CO (0.00-0.79); ~Hepatitis B Surface Antibody REACTIVE (Nonreactive); ~Hepatitis C Antibody Nonreactive (Nonreactive)
[2024-11-16 13:18] LABS: HIV RNA PCR Qn Copies NOT DETECTED copies/mL (NOT DETECTED); HIV RNA PCR Qn Log Copies NOT DETECTED (NOT DETECTED)
[2024-11-16 14:25] LABS: HBc Num2 0.15 S/CO; HBc Num3 0.16 S/CO
[2024-11-18 13:52] LABS: TS Negative Control Passed; TS Panel A 0; TS Panel B 0; TS Positive Control Passed; TSpotTB Negative (Negative)
[2024-11-20 15:50] LABS: Absolute CD3 Count 1652 cells/uL (840-3060); Absolute CD8 Count 715 cells/uL (180-1170); Percent CD3 Cells 79 % (57-85); Percent CD8 Cells 34 % (12-42)
== END 2024-11-15 08:09 | disposition home or self-care (01) ==
LOC: HO.HHCL 08:08
PROVIDERS: Student in an Organized Health Care Education/Training Program; PCP Nurse Practitioner Primary Care; Visit Provider Nurse Practitioner Primary Care
DX: Z11.59 Encounter for screening for other viral diseases (principal); Z11.3 Encounter for screening for infections with a predominantly sexual mode of transmission; Z11.1 Encounter for screening for respiratory tuberculosis; Z13.6 Encounter for screening for cardiovascular disorders; R73.01 Impaired fasting glucose; R43.0 Anosmia; Z21 Asymptomatic human immunodeficiency virus [HIV] infection status
CPT/HCPCS: 36415; 80053; 80061; 82248; 82607; 83036; 85025; 85610; 86359; 86360; 86481; 86592; 86704; 86706; 86803; 87536

== ENCOUNTER 2024-12-06 11:30 | Outpatient (REF) | payer OTHER, SELFPAY ==
[2024-12-06 16:34] LABS: CT PCR Urine NOT DETECTED (Not Detect.); NG PCR Urine DETECTED (Not Detect.)
[2024-12-07 08:44] LABS: HBsAGNum1 0.38 S/CO (0.00-0.99); Hepatitis B Surface Antigen Negative (Negative); ~HepC Num1 0.09 S/CO (0.00-0.79); ~Hepatitis C Antibody Nonreactive (Nonreactive)
== END 2024-12-06 11:31 | disposition home or self-care (01) ==
LOC: HO.HHCL 11:30
PROVIDERS: PCP Nurse Practitioner Primary Care; Referring Provider Student in an Organized Health Care Education/Training Program; Visit Provider Internal Medicine Geriatric Medicine
DX: N34.1 Nonspecific urethritis (principal); Z11.59 Encounter for screening for other viral diseases
CPT/HCPCS: 36415; 86592; 86803; 87340; 87491; 87591